=== PATIENT | male | born 1970 | race Caucasian/White ===

== ENCOUNTER 2023-12-11 06:33 | Day surgery (SDC) | payer BC ==
[2023-12-11] MEDS: Lactated Ringers 1,000 ML IV SCH (06:41)
[2023-12-11 06:53] VITALS: RESP 16
[2023-12-11] MEDS ORDERED: Versed 2 MG/2 ML Injection ONE (08:01)
[2023-12-11] MEDS ORDERED: DIPRIVAN 200 MG/20 ML IV ONE ×2 (08:01→08:18)
[2023-12-11] MEDS ORDERED: Xylocaine-Mpf 2% 5 Ml Vial ONE (08:01)
[2023-12-11 08:48] VITALS: O2SAT 100
--- NOTE | 2023-12-11 09:00 | OP ---
SURGERY DATE/TIME: 12/11/2023 0759 PREOPERATIVE DIAGNOSIS: Screening exam. POSTOPERATIVE DIAGNOSIS: Normal colon. PROCEDURE: Colonoscopy. SURGEON: Dr. Saul. ANESTHESIA: Medications given by anesthesia department. HISTORY: The patient is a 53-year-old white male presenting now for first screening colonoscopy. The patient was appraised of the risks of the procedure including the risk of perforation, phlebitis, untoward reaction to medication, bleeding and missed lesions. The patient verbalized his understanding and desired to have the procedure performed. DESCRIPTION OF PROCEDURE: The patient was given the medications by the anesthesia department. He had continuous pulse oximetry, ECG monitoring and intermittent blood pressure monitoring during the examination. He was placed in the left lateral decubitus position. A digital rectal examination was performed and revealed normal anal sphincter tone, no masses and a normal prostate. The flexible Olympus pediatric colonoscope was used to intubate the rectum. A view of the colon was developed sequentially to the cecum. Upon insertion and withdrawal, including a retroflex view in the rectum, no mucosal lesions were encountered. The scope was removed from the patient who tolerated the procedure well and was sent back to OP recovery in good condition. The prep was noted to be fair.
[2023-12-11 09:02] VITALS: BP 132/90; PULSE 94
[2023-12-11 09:14] VITALS: TEMP 97.6
== END 2023-12-11 09:13 | disposition home or self-care (01) ==
LOC: SDC 06:33
PROVIDERS: ATTEND Family Medicine
DX: Z12.11 Encounter for screening for malignant neoplasm of colon (principal); E11.9 Type 2 diabetes mellitus without complications
CPT/HCPCS: 82947; J2250; J2704

== ENCOUNTER 2024-10-05 13:47 | Observation (INO) | payer BC, MEDICAID ==
--- NOTE | 2024-10-05 14:53 | ERPHSYRPT ---
- History of Present Illness Source: patient Exam Limitations: no limitations Patient Subjective Stated Complaint: pt here for not feeling well and states hes BS was about 600 today, he was able to drink several bottles of water and took 6 u of humalog and 26 u of tresiba of hes moms today. he has not checked hes BS agian . Triage Nursing Assessment: pt alert, waked in, resp easy, skin w/d/p no edema noted, moves all ext well. Physician History: Patient has some generalized malaise. He does not have any fever or chills. He is diabetic and his sugar is in the 600s now. He has not checked it for 3 months. Exertion makes his symptoms of fatigue worse. He has no respiratory issues no abdominal issues other than some nausea. He does not have any other complaints. He says has been drinking plenty of fluids. Timing/Duration: week(s) Severity: mild, moderate Associated Symptoms: nausea, loss of appetite, malaise Allergies/Adverse Reactions: No Known Drug Allergies Allergy (Verified 12/11/23 06:40) Home Medications: Empagliflozin [Jardiance] 25 mg PO DAILY 11/29/23 [History] Glimepiride 2 mg [Amaryl 2 MG] 2 mg PO DAILY 11/29/23 [History] Semaglutide [Ozempic] 1 mg SQ WEEKLY 11/29/23 [History] Hx Influenza Vaccination/Date Given: No Hx Pneumococcal Vaccination/Date Given: No Immunizations Up to Date: Yes Travel Risk - International Travel Have you traveled outside of the country in past 3 weeks: No - Emerging Infectious Disease Are you exhibiting symptoms associated with any current EIDs: No - Review of Systems Constitutional: No Symptoms Eyes: No Symptoms Ears, Nose, & Throat: No Symptoms Respiratory: No Symptoms Cardiac: No Symptoms Abdominal/Gastrointestinal: No Symptoms Genitourinary Symptoms: No Symptoms Musculoskeletal: No Symptoms Skin: No Symptoms Neurological: No Symptoms All Other Systems: Reviewed and Negative - Past Medical History Pertinent Past Medical History: Yes Neurological History: No Pertinent History ENT History: No Pertinent History Cardiac History: No Pertinent History Respiratory History: No Pertinent History Endocrine Medical History: Diabetes Type II Musculoskeletal History: No Pertinent History GI Medical History: No Pertinent History History: No Pertinent History Psycho-Social History: No Pertinent History Male Reproductive Disorders: No Pertinent History - Past Surgical History Past Surgical History: No Neuro Surgical History: No Pertinent History Cardiac: No Pertinent History Respiratory: No Pertinent History Gastrointestinal: No Pertinent History Genitourinary: No Pertinent History Musculoskeletal: No Pertinent History Male Surgical History: Testicular Surgery - Social History Smoking Status: Current every day smoker How long have you smoked: 38 years Exposure to second hand smoke: Yes Drug Use: none - Social Determinants of Health Will the patient participate in the screening: Declined to provide - Nursing Vital Signs Nursing Vital Signs: Initial Vital Signs Respiratory Rate 18 10/05/24 14:08 O2 Sat by Pulse Oximetry 99 10/05/24 14:08 Pain Scale Pain Intensity 1 - Physical Exam General Appearance: no apparent distress Eye Exam: PERRL/EOMI Ears, Nose, Throat Exam: dry mucous membranes Neck Exam: normal inspection Respiratory Exam: normal breath sounds, lungs clear, No chest tenderness Cardiovascular Exam: regular rate/rhythm, normal heart sounds Gastrointestinal/Abdomen Exam: soft, normal bowel sounds, No tenderness, No distention, No mass Back Exam: normal inspection, normal range of motion, CVA tenderness Extremity Exam: normal inspection Neurologic Exam: alert, oriented x 3 Skin Exam: normal color SpO2: 99 - Course Nursing assessment & vital signs reviewed: Yes Ordered Tests: Active Orders 24 hr Category Date Time Status BMP Stat Lab 10/05/24 18:06 Ordered CBC W DIFF Stat Lab 10/05/24 14:50 Completed CMP Stat Lab 10/05/24 14:50 Completed POCT GLUCOSE Stat Lab 10/05/24 14:23 Received POCT GLUCOSE Stat Lab 10/05/24 16:20 Received POCT GLUCOSE Stat Lab 10/05/24 17:45 Completed UA W/RFX UR CULTURE Stat Lab 10/05/24 15:11 Completed Medication Summary Discontinued Medications Generic Name Dose Route Start Last Admin Trade Name Freq PRN Reason Stop Dose Admin Sodium Chloride 1,000 mls @ 999 mls/hr 10/05/24 14:48 10/05/24 16:05 Sodium Chloride 0.9% 1000 Ml IV 10/05/24 15:48 Infused .Q1H1M STA Infusion Sodium Chloride Confirm 10/05/24 15:00 Sodium Chloride 0.9% 1000 Ml Administered 10/05/24 15:01 Dose 1,000 mls @ ud .ROUTE .STK-MED ONE Sodium Chloride 1,000 mls @ 999 mls/hr 10/05/24 15:37 10/05/24 17:26 Sodium Chloride 0.9% 1000 Ml IV 10/05/24 16:37 Infused .Q1H1M STA Infusion Sodium Chloride Confirm 10/05/24 16:06 Sodium Chloride 0.9% 1000 Ml Administered 10/05/24 16:07 Dose 1,000 mls @ ud .ROUTE .STK-MED ONE Insulin Human Regular 20 unit 10/05/24 14:49 10/05/24 15:02 Insulin Regular, Human 1 Unit IV 10/05/24 14:50 Not Given STAT ONE Insulin Human Regular Confirm 10/05/24 15:00 Insulin Regular, Human 1 Unit Administered 10/05/24 15:01 Dose 10 unit .ROUTE .STK-MED ONE Insulin Human Regular 10 unit 10/05/24 15:02 10/05/24 15:04 Insulin Regular, Human 1 Unit IV 10/05/24 15:03 10 unit STAT ONE Administration Insulin Human Regular 10 unit 10/05/24 15:28 10/05/24 15:35 Insulin Regular, Human 1 Unit IV 10/05/24 15:29 10 unit STAT ONE Administration Insulin Human Regular Confirm 10/05/24 15:34 Insulin Regular, Human 1 Unit Administered 10/05/24 15:35 Dose 10 unit .ROUTE .STK-MED ONE Insulin Human Regular 10 unit 10/05/24 16:39 10/05/24 16:41 Insulin Regular, Human 1 Unit IV 10/05/24 16:40 10 unit STAT ONE Administration Insulin Human Regular Confirm 10/05/24 16:39 Insulin Regular, Human 1 Unit Administered 10/05/24 16:40 Dose 10 unit .ROUTE .STK-MED ONE Lab/Rad Data: Laboratory Result Diagrams 10/05/24 14:50 10/05/24 14:50 Laboratory Results 10/05/24 10/05/24 10/05/24 Range/Units 17:45 15:11 14:50 WBC (4.23-9.07) x10^3/uL RBC (4.63-6.08) x10^6/uL Hgb (13.7-17.5) g/dL Hct (40.1-51.0) % MCV (79.0-92.2) fL MCH (25.7-32.2) pg MCHC (32.3-36.5) g/dL RDW (11.6-14.4) % Plt Count (163-337) x10^3/uL MPV (9.4-12.4) fL Gran % (34.0-67.9) % Immature Gran % (Auto) (0.001-0.429) % Nucleat RBC Rel Count (0.00-0.2) % Eos # (Auto) (0.04-0.54) x10^3/uL Immature Gran # (Auto) (0.001-0.031) x10^3u/L Absolute Lymphs (auto) (1.32-3.57) x10^3/uL Absolute Monos (auto) (0.30-0.82) x10^3/uL Absolute Nucleated RBC (0.00-0.012) x10^3u/L Lymphocytes % (21.8-53.1) % Monocytes % (5.3-12.2) % Eosinophils % (0.8-7.0) % Basophils % (0.2-1.2) % Absolute Granulocytes (1.78-5.38) x10^3/uL Basophils # (0.01-0.08) x10^3/uL Sodium 124 L (135-145) mmol/L Potassium 5.5 H (3.5-5.1) mmol/L Chloride 87 L (98-107) mmol/L Carbon Dioxide 23 (22-30) mmol/L Anion Gap 19.7 H (5-15) MEQ/L BUN 33 H (9-20) mg/dL Creatinine 0.78 (0.66-1.25) mg/dL Estimated GFR 104.7 ML/MIN Glucose 938 H* (74-106) mg/dL POC Glucometer 552 H* (50 to 500) mg/dL Calcium 9.1 (8.4-10.2) mg/dL Total Bilirubin 0.40 (0.2-1.3) mg/dL AST 61 H (17-59) U/L ALT 103 H (0-50) U/L Alkaline Phosphatase 344 H (38-126) U/L Serum Total Protein 5.7 L (6.3-8.2) g/dL Albumin 3.4 L (3.5-5.0) g/dL Urine Color Yellow (Yellow) Urine Appearance Clear (Clear) Urine pH 5.0 (4.6-8.0) Ur Specific Mckinney >=1.030 A (1.005-1.030) Urine Protein Negative (Negative) Urine Glucose (UA) >=1000 A (Negative) mg/dL Urine Ketones Trace A (Negative) Urine Blood Negative (Negative) Urine Nitrite Negative (Negative) Urine Bilirubin Negative (Negative) Urine Urobilinogen 0.2 (0.2) mg/dL Ur Leukocyte Esterase Negative (Negative) U Hyaline Cast (Auto) NONE SEEN (0-2) /LPF Urine Microscopic RBC 0-2 (0-5) /HPF Urine Microscopic WBC 0-2 (0-5) /HPF Ur Epithelial Cells None Seen (None Seen) /HPF Urine Bacteria None Seen (None Seen) /HPF Urine Culture Reflexed NO (NO) Slides for Path Review 10/05/24 Range/Units 14:50 WBC 23.4 H (4.23-9.07) x10^3/uL RBC 4.93 (4.63-6.08) x10^6/uL Hgb 14.8 (13.7-17.5) g/dL Hct 45.1 (40.1-51.0) % MCV 91.5 (79.0-92.2) fL MCH 30.0 (25.7-32.2) pg MCHC 32.8 (32.3-36.5) g/dL RDW 13.0 (11.6-14.4) % Plt Count 249 (163-337) x10^3/uL MPV 11.9 (9.4-12.4) fL Gran % 88.1 H (34.0-67.9) % Immature Gran % (Auto) 1.6 H (0.001-0.429) % Nucleat RBC Rel Count 0.0 (0.00-0.2) % Eos # (Auto) 0 L (0.04-0.54) x10^3/uL Immature Gran # (Auto) 0.37 H (0.001-0.031) x10^3u/L Absolute Lymphs (auto) 0.97 L (1.32-3.57) x10^3/uL Absolute Monos (auto) 1.37 H (0.30-0.82) x10^3/uL Absolute Nucleated RBC 0.00 (0.00-0.012) x10^3u/L Lymphocytes % 4.2 L (21.8-53.1) % Monocytes % 5.9 (5.3-12.2) % Eosinophils % 0.0 L (0.8-7.0) % Basophils % 0.2 (0.2-1.2) % Absolute Granulocytes 20.61 H (1.78-5.38) x10^3/uL Basophils # 0.04 (0.01-0.08) x10^3/uL Sodium (135-145) mmol/L Potassium (3.5-5.1) mmol/L Chloride (98-107) mmol/L Carbon Dioxide (22-30) mmol/L Anion Gap (5-15) MEQ/L BUN (9-20) mg/dL Creatinine (0.66-1.25) mg/dL Estimated GFR ML/MIN Glucose (74-106) mg/dL POC Glucometer (50 to 500) mg/dL Calcium (8.4-10.2) mg/dL Total Bilirubin (0.2-1.3) mg/dL AST (17-59) U/L ALT (0-50) U/L Alkaline Phosphatase (38-126) U/L Serum Total Protein (6.3-8.2) g/dL Albumin (3.5-5.0) g/dL Urine Color (Yellow) Urine Appearance (Clear) Urine pH (4.6-8.0) Ur Specific Mckinney (1.005-1.030) Urine Protein (Negative) Urine Glucose (UA) (Negative) mg/dL Urine Ketones (Negative) Urine Blood (Negative) Urine Nitrite (Negative) Urine Bilirubin (Negative) Urine Urobilinogen (0.2) mg/dL Ur Leukocyte Esterase (Negative) U Hyaline Cast (Auto) (0-2) /LPF Urine Microscopic RBC (0-5) /HPF Urine Microscopic WBC (0-5) /HPF Ur Epithelial Cells (None Seen) /HPF Urine Bacteria (None Seen) /HPF Urine Culture Reflexed (NO) Slides for Path Review YES - Progress Progress: improved Progress Note: The patient's sugar was almost the thousand. He has not checked in 3 months so he does not know how long it has been high. He said generally nothing is changed in his treatment. He is taking the same medicines and using the same diet. He just does not check his blood sugars. He does not have any obvious infectious causes that would be causing the sugars to be elevated. I gave the patient 2 L of fluid and 30 units of regular insulin. His sugar went down to around 450. I am pleased with that reduction however I think that the patient should probably be admitted and figure out why sugar is so high and also get a new treatment plan if needed.I spoke with the hospitalist and they agreed to admit the patient. I ordered a venous blood gas on the patient. Critical care time was about 20 minutes at the bedside 10 minutes decision making in 10 minutes on the phone consultations 10/05/24 18:04 10/05/24 18:26 10/05/24 18:27 - Departure Departure Disposition: Observation Clinical Impression: Hyperglycemia Condition: Good Critical Care Time: Yes Critical Care Time(excluding separately billable procedures): Critical 30-74 mins Referrals: DOCTOR,NO FAMILY [NON-STAFF PHY W/O PRIVILEGES] - Follow up/PCP as directed
[2024-10-05 15:00] LABS: Absolute Neutrophil Ct (ANC) 20.61 x10^3/uL (1.78-5.38); BASOPHIL % 0.2 % (0.2-1.2); Basophil (Absolute #) 0.04 x10^3/uL (0.01-0.08); Eosinophil (Absolute #) 0 x10^3/uL (0.04-0.54); Hematocrit 45.1 % (40.1-51.0); Hemoglobin 14.8 g/dL (13.7-17.5); IMMATURE GRAN # 0.37 x10^3u/L (0.001-0.031); IMMATURE GRAN % 1.6 % (0.001-0.429); Lymphocyte (Absolute #) 0.97 x10^3/uL (1.32-3.57); Lymphocytes % 4.2 % (21.8-53.1); Mean Cell Volume 91.5 fL (79.0-92.2); Mean Corpuscular Hgb Concent. 32.8 g/dL (32.3-36.5); Mean Platelet Volume 11.9 fL (9.4-12.4); Monocyte (Absolute #) 1.37 x10^3/uL (0.30-0.82); Monocytes % 5.9 % (5.3-12.2); Neutrophil % 88.1 % (34.0-67.9); Platelet Count 249 x10^3/uL (163-337); Red Blood Count 4.93 x10^6/uL (4.63-6.08); White Blood Count 23.4 x10^3/uL (4.23-9.07)
[2024-10-05] MEDS ORDERED: HUMULIN R ONE ×3 (15:00→16:39)
[2024-10-05] MEDS ORDERED: Sodium Chloride 0.9% 1000 ML 1,000 ML ONE ×2 (15:00→16:06)
[2024-10-05] MEDS: Sodium Chloride 0.9% 1000 ML 1,000 ML IV STA ×2 (15:01→16:20)
[2024-10-05] MEDS: HUMULIN R IV ONE ×4 (15:02→16:41)
[2024-10-05 15:12] LABS: ALBUMIN 3.4 g/dL (3.5-5.0); ANION GAP 19.7 MEQ/L (5-15); BILIRUBIN,TOTAL 0.4 mg/dL (0.2-1.3); Calcium 9.1 mg/dL (8.4-10.2); Creatinine 1 0.78 mg/dL (0.66-1.25); EST GLOMERULAR FILTRATION RATE 104.7 ML/MIN; Potassium 5.5 mmol/L (3.5-5.1); Total Protein 5.7 g/dL (6.3-8.2)
[2024-10-05 15:48] LABS: Appearance Clear (Clear); Bacteria None Seen /HPF (None Seen); Bilirubin Negative (Negative); Blood Negative (Negative); Epithelial Cells None Seen /HPF (None Seen); Glucose, Urine >=1000 mg/dL (Negative); Hyaline Casts NONE SEEN /LPF (0-2); Ketones Trace (Negative); Leukocyte Esterase Negative (Negative); Nitrite Negative (Negative); Protein,Urine Dip Negative (Negative); RBC 0-2 /HPF (0-5); Specific Gravity >=1.030 (1.005-1.030); Urobilinogen 0.2 mg/dL (0.2); WBC 0-2 /HPF (0-5)
[2024-10-05 16:47] LABS: Slide Review 1 YES
[2024-10-05 18:41] LABS: VBG BASE EXCESS 2.4 (-2.0-2.0); VBG CARBOXYHEMOGLOBIN 4.7 % T HGB (0.0-6.9); VBG HCO3- 28.4 meq/L (22-28); VBG HEMOGLOBIN 15.1; VBG O2 SATURATION 46.3 (95-100); VBG POTASSIUM 4.2 (3.5-5.1); VBG pH 7.38 (7.32-7.42)
[2024-10-05 18:53] LABS: ANION GAP 13.2 MEQ/L (5-15); Calcium 8.7 mg/dL (8.4-10.2); Creatinine 1 0.71 mg/dL (0.66-1.25); EST GLOMERULAR FILTRATION RATE 107.7 ML/MIN; Potassium 4.2 mmol/L (3.5-5.1)
[2024-10-05 19:38] LABS: INFLUENZA A NEGATIVE (NEGATIVE); INFLUENZA B NEGATIVE (NEGATIVE); RESPIRATORY SYNCTIAL VIRUS NEGATIVE (NEGATIVE); SARS-CoV-2 Xpert Express NEGATIVE (NEGATIVE)
--- NOTE | 2024-10-05 21:54 | PCM.HP ---
History of Present Illness - Chief Complaint Chief Complaint: hyperglycemia Date: 10/05/24 History of Present Illness: Mr. GODWIN is a 54 year old male with a past medical history significant for hypertension, diabetes, and hyperlipidemia who presents to the hospital with complaints of weakness and elevated blood sugars. Blood sugar upon arrival was almost 1000. No recent changes in his diet. No fever/chills. No chest pain or shortness of breath. No nausea, vomiting or diarrhea. No dysuria, hematuria or foamy urine. Initial labs were notable for a sodium of 128. - Review of Systems Constitutional: No Fever, No Chills Eyes: No Vision Changes Ears, Nose, & Throat: No Snoring Respiratory: No Cough, No Orthopnea, No Short Of Breath Cardiac: No Chest Pain, No Edema, No Palpitations Abdominal/Gastrointestinal: No Abdominal Pain, No Nausea, No Vomiting, No Diarrhea Genitourinary Symptoms: No Dysuria, No Frequency, No Hematuria Musculoskeletal: No Arthralgias Skin: No Cellulitis Neurological: No Dizziness Medications & Allergies Home Medications: Home Medication List Semaglutide [Ozempic] 1.5 mg SQ WEEKLY 11/29/23 [History Confirmed 10/05/24] Carvedilol 3.125 mg [Coreg 3.125 MG] 3.125 mg PO BID 10/05/24 [History Confirmed 10/05/24] Glimepiride 4 mg [Amaryl 4 mg] 4 mg PO DAILY 10/05/24 [History Confirmed 10/05/24] Glipizide 10 mg [Glucotrol 10 MG] 10 mg PO BID 10/05/24 [History Confirmed 10/05/24] Allergies/Adverse Reactions: Allergies Allergy/AdvReac Type Severity Reaction Status Date / Time No Known Drug Allergies Allergy Verified 12/11/23 06:40 - Past Medical History Past Medical History: Yes Neurological History: No Pertinent History ENT History: Cataracts Cardiac History: No Pertinent History, Coronary Artery Disease, Hypertension Respiratory History: No Pertinent History Endocrine Medical History: Diabetes Type II Musculoskelatal History: No Pertinent History GI Medical History: No Pertinent History History: No Pertinent History Pyscho-Social History: No Pertinent History Male Reproductive Disorders: No Pertinent History - Past Surgical History Past Surgical History: Yes Neuro Surgical History: No Pertinent History Cardiac History: No Pertinent History Respiratory Surgery: No Pertinent History GI Surgical History: No Pertinent History Genitourinary Surgical Hx: No Pertinent History Musculskeletal Surgical Hx: No Pertinent History Male Surgical History: Testicular Surgery - Social History Smoking Status: Current every day smoker How long have you smoked: 38 years Exposure to second hand smoke: No Alcohol: None Drug Use: none - Social Determinants of Health Will the patient participate in the screening: Declined to provide - Physical Exam Vital Signs: Vital Signs - 24 hr Temp Pulse Resp BP BP Pulse Ox 10/05/24 20:35 97.7 F 91 H 17 124/75 98 10/05/24 19:00 90 18 115/73 98 10/05/24 18:30 91 H 18 112/68 97 10/05/24 18:28 99 10/05/24 18:00 86 18 118/79 97 10/05/24 17:30 86 18 112/80 97 10/05/24 17:00 91 H 18 114/81 98 10/05/24 16:30 91 H 18 117/79 98 10/05/24 16:00 127/88 98 10/05/24 15:30 128/95 98 10/05/24 15:00 90 16 135/93 98 10/05/24 14:30 90 16 135/91 98 10/05/24 14:09 97 F 94 H 18 143/100 99 10/05/24 14:08 18 99 General Appearance: no apparent distress Neurologic Exam: alert, oriented x 3 Ears, Nose, Throat Exam: moist mucous membranes Neck Exam: supple Respiratory Exam: No respiratory distress Cardiovascular Exam: regular rate/rhythm Gastrointestinal/Abdomen Exam: soft Skin Exam: normal color, No rash Results - Labs Lab/Micro Results: Lab Results-Last 24 Hours 10/05/24 10/05/24 10/05/24 Range/Units 14:50 14:50 15:11 WBC 23.4 H (4.23-9.07) x10^3/uL RBC 4.93 (4.63-6.08) x10^6/uL Hgb 14.8 (13.7-17.5) g/dL Hct 45.1 (40.1-51.0) % MCV 91.5 (79.0-92.2) fL MCH 30.0 (25.7-32.2) pg MCHC 32.8 (32.3-36.5) g/dL RDW 13.0 (11.6-14.4) % Plt Count 249 (163-337) x10^3/uL MPV 11.9 (9.4-12.4) fL Gran % 88.1 H (34.0-67.9) % Immature Gran % (Auto) 1.6 H (0.001-0.429) % Nucleat RBC Rel Count 0.0 (0.00-0.2) % Eos # (Auto) 0 L (0.04-0.54) x10^3/uL Immature Gran # (Auto) 0.37 H (0.001-0.031) x10^3u/L Absolute Lymphs (auto) 0.97 L (1.32-3.57) x10^3/uL Absolute Monos (auto) 1.37 H (0.30-0.82) x10^3/uL Absolute Nucleated RBC 0.00 (0.00-0.012) x10^3u/L Lymphocytes % 4.2 L (21.8-53.1) % Monocytes % 5.9 (5.3-12.2) % Eosinophils % 0.0 L (0.8-7.0) % Basophils % 0.2 (0.2-1.2) % Absolute Granulocytes 20.61 H (1.78-5.38) x10^3/uL Basophils # 0.04 (0.01-0.08) x10^3/uL pO2/FiO2 Ratio % VBG pH (7.32-7.42) VBG pCO2 at Pat Temp (42-55) mm/Hg VBG pO2 at Pat Temp (25-40) mm/Hg VBG HCO3 (22-28) meq/L VBG O2 Sat (Natalie) (95-100) VBG Base Excess (-2.0-2.0) VBG Hemoglobin VBG Carboxyhemoglobin (0.0-6.9) % T HGB POC Potassium (3.5-5.1) Sodium 124 L (135-145) mmol/L Potassium 5.5 H (3.5-5.1) mmol/L Chloride 87 L (98-107) mmol/L Carbon Dioxide 23 (22-30) mmol/L Anion Gap 19.7 H (5-15) MEQ/L BUN 33 H (9-20) mg/dL Creatinine 0.78 (0.66-1.25) mg/dL Estimated GFR 104.7 ML/MIN Glucose 938 H* (74-106) mg/dL POC Glucometer (50 to 500) mg/dL Calcium 9.1 (8.4-10.2) mg/dL Total Bilirubin 0.40 (0.2-1.3) mg/dL AST 61 H (17-59) U/L ALT 103 H (0-50) U/L Alkaline Phosphatase 344 H (38-126) U/L Serum Total Protein 5.7 L (6.3-8.2) g/dL Albumin 3.4 L (3.5-5.0) g/dL Urine Color Yellow (Yellow) Urine Appearance Clear (Clear) Urine pH 5.0 (4.6-8.0) Ur Specific [place] >=1.030 A (1.005-1.030) Urine Protein Negative (Negative) Urine Glucose (UA) >=1000 A (Negative) mg/dL Urine Ketones Trace A (Negative) Urine Blood Negative (Negative) Urine Nitrite Negative (Negative) Urine Bilirubin Negative (Negative) Urine Urobilinogen 0.2 (0.2) mg/dL Ur Leukocyte Esterase Negative (Negative) U Hyaline Cast (Auto) NONE SEEN (0-2) /LPF Urine Microscopic RBC 0-2 (0-5) /HPF Urine Microscopic WBC 0-2 (0-5) /HPF Ur Epithelial Cells None Seen (None Seen) /HPF Urine Bacteria None Seen (None Seen) /HPF Urine Culture Reflexed NO (NO) Influenza Type A Ag (NEGATIVE) Influenza Type B Ag (NEGATIVE) RSV (PCR) (NEGATIVE) SARS-CoV-2 (PCR) (NEGATIVE) Slides for Path Review YES 10/05/24 10/05/24 10/05/24 Range/Units 17:45 18:30 18:30 WBC (4.23-9.07) x10^3/uL RBC (4.63-6.08) x10^6/uL Hgb (13.7-17.5) g/dL Hct (40.1-51.0) % MCV (79.0-92.2) fL MCH (25.7-32.2) pg MCHC (32.3-36.5) g/dL RDW (11.6-14.4) % Plt Count (163-337) x10^3/uL MPV (9.4-12.4) fL Gran % (34.0-67.9) % Immature Gran % (Auto) (0.001-0.429) % Nucleat RBC Rel Count (0.00-0.2) % Eos # (Auto) (0.04-0.54) x10^3/uL Immature Gran # (Auto) (0.001-0.031) x10^3u/L Absolute Lymphs (auto) (1.32-3.57) x10^3/uL Absolute Monos (auto) (0.30-0.82) x10^3/uL Absolute Nucleated RBC (0.00-0.012) x10^3u/L Lymphocytes % (21.8-53.1) % Monocytes % (5.3-12.2) % Eosinophils % (0.8-7.0) % Basophils % (0.2-1.2) % Absolute Granulocytes (1.78-5.38) x10^3/uL Basophils # (0.01-0.08) x10^3/uL pO2/FiO2 Ratio 21.0 % VBG pH 7.38 (7.32-7.42) VBG pCO2 at Pat Temp 48 (42-55) mm/Hg VBG pO2 at Pat Temp 30 (25-40) mm/Hg VBG HCO3 28.4 H (22-28) meq/L VBG O2 Sat (Natalie) 46.3 L (95-100) VBG Base Excess 2.4 H (-2.0-2.0) VBG Hemoglobin 15.1 VBG Carboxyhemoglobin 4.7 (0.0-6.9) % T HGB POC Potassium 4.2 (3.5-5.1) Sodium 128 L (135-145) mmol/L Potassium 4.2 D (3.5-5.1) mmol/L Chloride 94 L (98-107) mmol/L Carbon Dioxide 25 (22-30) mmol/L Anion Gap 13.2 (5-15) MEQ/L BUN 32 H (9-20) mg/dL Creatinine 0.71 (0.66-1.25) mg/dL Estimated GFR 107.7 ML/MIN Glucose 466 H (74-106) mg/dL POC Glucometer 552 H* (50 to 500) mg/dL Calcium 8.7 (8.4-10.2) mg/dL Total Bilirubin (0.2-1.3) mg/dL AST (17-59) U/L ALT (0-50) U/L Alkaline Phosphatase (38-126) U/L Serum Total Protein (6.3-8.2) g/dL Albumin (3.5-5.0) g/dL Urine Color (Yellow) Urine Appearance (Clear) Urine pH (4.6-8.0) Ur Specific [place] (1.005-1.030) Urine Protein (Negative) Urine Glucose (UA) (Negative) mg/dL Urine Ketones (Negative) Urine Blood (Negative) Urine Nitrite (Negative) Urine Bilirubin (Negative) Urine Urobilinogen (0.2) mg/dL Ur Leukocyte Esterase (Negative) U Hyaline Cast (Auto) (0-2) /LPF Urine Microscopic RBC (0-5) /HPF Urine Microscopic WBC (0-5) /HPF Ur Epithelial Cells (None Seen) /HPF Urine Bacteria (None Seen) /HPF Urine Culture Reflexed (NO) Influenza Type A Ag (NEGATIVE) Influenza Type B Ag (NEGATIVE) RSV (PCR) (NEGATIVE) SARS-CoV-2 (PCR) (NEGATIVE) Slides for Path Review 10/05/24 10/05/24 Range/Units 18:50 20:50 WBC (4.23-9.07) x10^3/uL RBC (4.63-6.08) x10^6/uL Hgb (13.7-17.5) g/dL Hct (40.1-51.0) % MCV (79.0-92.2) fL MCH (25.7-32.2) pg MCHC (32.3-36.5) g/dL RDW (11.6-14.4) % Plt Count (163-337) x10^3/uL MPV (9.4-12.4) fL Gran % (34.0-67.9) % Immature Gran % (Auto) (0.001-0.429) % Nucleat RBC Rel Count (0.00-0.2) % Eos # (Auto) (0.04-0.54) x10^3/uL Immature Gran # (Auto) (0.001-0.031) x10^3u/L Absolute Lymphs (auto) (1.32-3.57) x10^3/uL Absolute Monos (auto) (0.30-0.82) x10^3/uL Absolute Nucleated RBC (0.00-0.012) x10^3u/L Lymphocytes % (21.8-53.1) % Monocytes % (5.3-12.2) % Eosinophils % (0.8-7.0) % Basophils % (0.2-1.2) % Absolute Granulocytes (1.78-5.38) x10^3/uL Basophils # (0.01-0.08) x10^3/uL pO2/FiO2 Ratio % VBG pH (7.32-7.42) VBG pCO2 at Pat Temp (42-55) mm/Hg VBG pO2 at Pat Temp (25-40) mm/Hg VBG HCO3 (22-28) meq/L VBG O2 Sat (Natalie) (95-100) VBG Base Excess (-2.0-2.0) VBG Hemoglobin VBG Carboxyhemoglobin (0.0-6.9) % T HGB POC Potassium (3.5-5.1) Sodium (135-145) mmol/L Potassium (3.5-5.1) mmol/L Chloride (98-107) mmol/L Carbon Dioxide (22-30) mmol/L Anion Gap (5-15) MEQ/L BUN (9-20) mg/dL Creatinine (0.66-1.25) mg/dL Estimated GFR ML/MIN Glucose (74-106) mg/dL POC Glucometer 461 H (50 to 500) mg/dL Calcium (8.4-10.2) mg/dL Total Bilirubin (0.2-1.3) mg/dL AST (17-59) U/L ALT (0-50) U/L Alkaline Phosphatase (38-126) U/L Serum Total Protein (6.3-8.2) g/dL Albumin (3.5-5.0) g/dL Urine Color (Yellow) Urine Appearance (Clear) Urine pH (4.6-8.0) Ur Specific [place] (1.005-1.030) Urine Protein (Negative) Urine Glucose (UA) (Negative) mg/dL Urine Ketones (Negative) Urine Blood (Negative) Urine Nitrite (Negative) Urine Bilirubin (Negative) Urine Urobilinogen (0.2) mg/dL Ur Leukocyte Esterase (Negative) U Hyaline Cast (Auto) (0-2) /LPF Urine Microscopic RBC (0-5) /HPF Urine Microscopic WBC (0-5) /HPF Ur Epithelial Cells (None Seen) /HPF Urine Bacteria (None Seen) /HPF Urine Culture Reflexed (NO) Influenza Type A Ag NEGATIVE (NEGATIVE) Influenza Type B Ag NEGATIVE (NEGATIVE) RSV (PCR) NEGATIVE (NEGATIVE) SARS-CoV-2 (PCR) NEGATIVE (NEGATIVE) Slides for Path Review Accuchecks Date 10/05/24 Date 10/05/24 Time 21:00 Time 16:35 - Other Procedures and Tests Respiratory Therapy 10/05/24 21:15 Smoking Cessation Education ONCE Assessment/Plan (1) Hyperglycemia due to diabetes mellitus Current Visit: Yes Status: Acute Assessment & Plan: Markedly elevated blood sugars close to 1000, doesn't check sugars but last HbA1c 9.0 from 10.5 1. FSBS qAC/HS with SSI 2. ADA diet 3. Continue diabetic needs 4. Monitor blood sugars Code(s): E11.65 - TYPE 2 DIABETES MELLITUS WITH HYPERGLYCEMIA (2) Dehydration Current Visit: Yes Status: Acute Assessment & Plan: Likely from prerenal azotemia and hyperglycemia with elevated BUN:Cr ratio 1. Trial of IVFs 2. Hold diuretics, FINA, ARB, SGLT2 3. Follow I/Os 4. Watch electrolytes, creatinine closely Code(s): E86.0 - DEHYDRATION (3) Essential (primary) hypertension Current Visit: Yes Status: Acute Assessment & Plan: Blood pressure under reasonable control 1. Continue bp meds 2. Low Na diet 3. Monitor blood pressure readings Code(s): I10 - ESSENTIAL (PRIMARY) HYPERTENSION (4) Hyponatremia Current Visit: Yes Status: Acute Assessment & Plan: Secondary to hyperglycemia and some component of hypovolemia 1. NS IVFs 2. Check urine lytes, urine osmo 3. Limit free water 4. Watch electrolytes, creatinine closely Thanks! Code(s): E87.1 - HYPO-OSMOLALITY AND HYPONATREMIA Telemedicine Encounter - Telemedicine Encounter Telemedicine Encounter: "The entirety of this encounter was performed via Telemedicine" This visit was performed using real-time audio and video connection between my location and thepatients locationwith the assistance of a surrogateat the patients location. Written or verbal consent was obtained from the patient/guardian to perform this visit usingsynchronoustelemedicine technology. Any patient questions regarding the telemedicine interaction were answered.
[2024-10-05] MEDS ORDERED: Docusate Sodium 100 MG PO PRN (22:10)
[2024-10-05] MEDS ORDERED: TYLENOL 325 MG PO PRN (22:10)
[2024-10-05] MEDS: HUMULIN R SQ PRN (22:24)
[2024-10-05] MEDS: Sodium Chloride 0.9% 1000 ML 1,000 ML IV SCH (23:35)
[2024-10-06 04:50] LABS: Absolute Neutrophil Ct (ANC) 14.25 x10^3/uL (1.78-5.38); BASOPHIL % 0.2 % (0.2-1.2); Basophil (Absolute #) 0.03 x10^3/uL (0.01-0.08); Eosinophil % 0.2 % (0.8-7.0); Eosinophil (Absolute #) 0.03 x10^3/uL (0.04-0.54); Hemoglobin 13.9 g/dL (13.7-17.5); IMMATURE GRAN # 0.26 x10^3u/L (0.001-0.031); IMMATURE GRAN % 1.4 % (0.001-0.429); Mean Cell Volume 88.6 fL (79.0-92.2); Mean Corpuscular Hgb Concent. 33.9 g/dL (32.3-36.5); Monocyte (Absolute #) 1.21 x10^3/uL (0.30-0.82); Monocytes % 6.4 % (5.3-12.2); Neutrophil % 75.8 % (34.0-67.9); Platelet Count 249 x10^3/uL (163-337); Red Blood Count 4.63 x10^6/uL (4.63-6.08); Red Cell Distribution Width 12.9 % (11.6-14.4); White Blood Count 18.8 x10^3/uL (4.23-9.07)
[2024-10-06 05:20] LABS: ALBUMIN 3.3 g/dL (3.5-5.0); ANION GAP 9.9 MEQ/L (5-15); BILIRUBIN,TOTAL 0.6 mg/dL (0.2-1.3); Calcium 8.6 mg/dL (8.4-10.2); Creatinine 1 0.74 mg/dL (0.66-1.25); EST GLOMERULAR FILTRATION RATE 106.3 ML/MIN; Potassium 3.9 mmol/L (3.5-5.1); Total Protein 6.1 g/dL (6.3-8.2)
--- NOTE | 2024-10-06 05:46 | PCM.NOTE ---
Date and Time: 10/06/24 0541 Subjective Assessment: HPI: Mr. GODWIN is a 54 year old male with a past medical history significant for hypertension, diabetes, and hyperlipidemia who presents to the hospital with complaints of weakness and elevated blood sugars. Initial lab findings were remarkable for blood glucose level of 938, leukocytosis with WBC at 23.4, hyponatremia in the setting of hypoglycemia, elevated procal at 0.530, and transaminitis. Urinalysis with glycosuria. CXR showing new infilatrate in bilateral lungs. Patient states he is compliant with home diabetes medications but does not check his blood sugar. He states he needs a new machine and supplies. Last A1c in November 2023 was 11.10, today A1c is at 12.53. Discussed starting insulin and seeing an senior procurement specialist with patient today. He currently is Medicaid pending and will need help with medications and supplies- CM is working on this. Patient states he is feeling better today. Discussed CXR findings showing pneumonia. He reports feeling achy all over but denies cough or shortness of breath. He is a current everyday smoker -advised cessation. Denies fever,cough, sob, cp, abdominal pain, WOOTEN, dizziness, N/V/D. - Review of Systems Constitutional: Weakness Eyes: No Symptoms Ears, Nose, & Throat: No Symptoms Respiratory: No Symptoms Cardiac: No Symptoms Abdominal/Gastrointestinal: No Symptoms Genitourinary Symptoms: No Symptoms Musculoskeletal: No Symptoms Skin: No Symptoms Neurological: No Symptoms Psychological: No Symptoms Endocrine: No Symptoms Hematologic/Lymphatic: No Symptoms Immunological/Allergic: No Symptoms Objective Exam General Appearance: no apparent distress Neurologic Exam: alert, oriented x 3, cooperative Skin Exam: normal color Eye Exam: PERRL Ears, Nose, Throat Exam: normal ENT inspection Neck Exam: normal inspection Respiratory Exam: crackles/rales Cardiovascular Exam: regular rate/rhythm, normal heart sounds Gastrointestinal/Abdomen Exam: soft, normal bowel sounds Extremity Exam: normal inspection Back Exam: normal inspection Male Genitalia Exam: deferred Rectal Exam: deferred Objective Data Vital Signs: Vital Signs - 24 hr Temp Pulse Resp BP BP Pulse Ox 10/06/24 03:39 97.8 F 85 22 121/64 96 10/06/24 00:00 97.7 F 87 16 115/73 10/05/24 23:19 97.7 F 87 16 115/73 10/05/24 20:35 97.7 F 91 H 17 124/75 98 10/05/24 19:00 90 18 115/73 98 10/05/24 18:30 91 H 18 112/68 97 10/05/24 18:28 99 10/05/24 18:00 86 18 118/79 97 10/05/24 17:30 86 18 112/80 97 10/05/24 17:00 91 H 18 114/81 98 10/05/24 16:30 91 H 18 117/79 98 10/05/24 16:00 127/88 98 10/05/24 15:30 128/95 98 10/05/24 15:00 90 16 135/93 98 10/05/24 14:30 90 16 135/91 98 10/05/24 14:09 97 F 94 H 18 143/100 99 10/05/24 14:08 18 99 Pain Assessment - Last Documented Pain Intensity 0 Intake and Output: Intake & Output 10/03/24 10/04/24 10/05/24 10/06/24 11:59 11:59 11:59 11:59 Intake Total 1151 Output Total 600 Balance 551 Weight 77.3 kg Lab Results: Lab Results-Last 24 Hours 10/05/24 10/05/24 10/05/24 Range/Units 14:50 14:50 15:11 WBC 23.4 H (4.23-9.07) x10^3/uL RBC 4.93 (4.63-6.08) x10^6/uL Hgb 14.8 (13.7-17.5) g/dL Hct 45.1 (40.1-51.0) % MCV 91.5 (79.0-92.2) fL MCH 30.0 (25.7-32.2) pg MCHC 32.8 (32.3-36.5) g/dL RDW 13.0 (11.6-14.4) % Plt Count 249 (163-337) x10^3/uL MPV 11.9 (9.4-12.4) fL Gran % 88.1 H (34.0-67.9) % Immature Gran % (Auto) 1.6 H (0.001-0.429) % Nucleat RBC Rel Count 0.0 (0.00-0.2) % Eos # (Auto) 0 L (0.04-0.54) x10^3/uL Immature Gran # (Auto) 0.37 H (0.001-0.031) x10^3u/L Absolute Lymphs (auto) 0.97 L (1.32-3.57) x10^3/uL Absolute Monos (auto) 1.37 H (0.30-0.82) x10^3/uL Absolute Nucleated RBC 0.00 (0.00-0.012) x10^3u/L Lymphocytes % 4.2 L (21.8-53.1) % Monocytes % 5.9 (5.3-12.2) % Eosinophils % 0.0 L (0.8-7.0) % Basophils % 0.2 (0.2-1.2) % Absolute Granulocytes 20.61 H (1.78-5.38) x10^3/uL Basophils # 0.04 (0.01-0.08) x10^3/uL pO2/FiO2 Ratio % VBG pH (7.32-7.42) VBG pCO2 at Pat Temp (42-55) mm/Hg VBG pO2 at Pat Temp (25-40) mm/Hg VBG HCO3 (22-28) meq/L VBG O2 Sat (Natalie) (95-100) VBG Base Excess (-2.0-2.0) VBG Hemoglobin VBG Carboxyhemoglobin (0.0-6.9) % T HGB POC Potassium (3.5-5.1) Sodium 124 L (135-145) mmol/L Potassium 5.5 H (3.5-5.1) mmol/L Chloride 87 L (98-107) mmol/L Carbon Dioxide 23 (22-30) mmol/L Anion Gap 19.7 H (5-15) MEQ/L BUN 33 H (9-20) mg/dL Creatinine 0.78 (0.66-1.25) mg/dL Estimated GFR 104.7 ML/MIN Glucose 938 H* (74-106) mg/dL POC Glucometer (50 to 500) mg/dL Hemoglobin A1c (4.5-6.0) % Calcium 9.1 (8.4-10.2) mg/dL Total Bilirubin 0.40 (0.2-1.3) mg/dL AST 61 H (17-59) U/L ALT 103 H (0-50) U/L Alkaline Phosphatase 344 H (38-126) U/L Serum Total Protein 5.7 L (6.3-8.2) g/dL Albumin 3.4 L (3.5-5.0) g/dL Urine Color Yellow (Yellow) Urine Appearance Clear (Clear) Urine pH 5.0 (4.6-8.0) Ur Specific [place] >=1.030 A (1.005-1.030) Urine Protein Negative (Negative) Urine Glucose (UA) >=1000 A (Negative) mg/dL Urine Ketones Trace A (Negative) Urine Blood Negative (Negative) Urine Nitrite Negative (Negative) Urine Bilirubin Negative (Negative) Urine Urobilinogen 0.2 (0.2) mg/dL Ur Leukocyte Esterase Negative (Negative) U Hyaline Cast (Auto) NONE SEEN (0-2) /LPF Urine Microscopic RBC 0-2 (0-5) /HPF Urine Microscopic WBC 0-2 (0-5) /HPF Ur Epithelial Cells None Seen (None Seen) /HPF Urine Bacteria None Seen (None Seen) /HPF Urine Culture Reflexed NO (NO) Influenza Type A Ag (NEGATIVE) Influenza Type B Ag (NEGATIVE) RSV (PCR) (NEGATIVE) SARS-CoV-2 (PCR) (NEGATIVE) Slides for Path Review YES 10/05/24 10/05/24 10/05/24 Range/Units 17:45 18:30 18:30 WBC (4.23-9.07) x10^3/uL RBC (4.63-6.08) x10^6/uL Hgb (13.7-17.5) g/dL Hct (40.1-51.0) % MCV (79.0-92.2) fL MCH (25.7-32.2) pg MCHC (32.3-36.5) g/dL RDW (11.6-14.4) % Plt Count (163-337) x10^3/uL MPV (9.4-12.4) fL Gran % (34.0-67.9) % Immature Gran % (Auto) (0.001-0.429) % Nucleat RBC Rel Count (0.00-0.2) % Eos # (Auto) (0.04-0.54) x10^3/uL Immature Gran # (Auto) (0.001-0.031) x10^3u/L Absolute Lymphs (auto) (1.32-3.57) x10^3/uL Absolute Monos (auto) (0.30-0.82) x10^3/uL Absolute Nucleated RBC (0.00-0.012) x10^3u/L Lymphocytes % (21.8-53.1) % Monocytes % (5.3-12.2) % Eosinophils % (0.8-7.0) % Basophils % (0.2-1.2) % Absolute Granulocytes (1.78-5.38) x10^3/uL Basophils # (0.01-0.08) x10^3/uL pO2/FiO2 Ratio 21.0 % VBG pH 7.38 (7.32-7.42) VBG pCO2 at Pat Temp 48 (42-55) mm/Hg VBG pO2 at Pat Temp 30 (25-40) mm/Hg VBG HCO3 28.4 H (22-28) meq/L VBG O2 Sat (Natalie) 46.3 L (95-100) VBG Base Excess 2.4 H (-2.0-2.0) VBG Hemoglobin 15.1 VBG Carboxyhemoglobin 4.7 (0.0-6.9) % T HGB POC Potassium 4.2 (3.5-5.1) Sodium 128 L (135-145) mmol/L Potassium 4.2 D (3.5-5.1) mmol/L Chloride 94 L (98-107) mmol/L Carbon Dioxide 25 (22-30) mmol/L Anion Gap 13.2 (5-15) MEQ/L BUN 32 H (9-20) mg/dL Creatinine 0.71 (0.66-1.25) mg/dL Estimated GFR 107.7 ML/MIN Glucose 466 H (74-106) mg/dL POC Glucometer 552 H* (50 to 500) mg/dL Hemoglobin A1c (4.5-6.0) % Calcium 8.7 (8.4-10.2) mg/dL Total Bilirubin (0.2-1.3) mg/dL AST (17-59) U/L ALT (0-50) U/L Alkaline Phosphatase (38-126) U/L Serum Total Protein (6.3-8.2) g/dL Albumin (3.5-5.0) g/dL Urine Color (Yellow) Urine Appearance (Clear) Urine pH (4.6-8.0) Ur Specific [place] (1.005-1.030) Urine Protein (Negative) Urine Glucose (UA) (Negative) mg/dL Urine Ketones (Negative) Urine Blood (Negative) Urine Nitrite (Negative) Urine Bilirubin (Negative) Urine Urobilinogen (0.2) mg/dL Ur Leukocyte Esterase (Negative) U Hyaline Cast (Auto) (0-2) /LPF Urine Microscopic RBC (0-5) /HPF Urine Microscopic WBC (0-5) /HPF Ur Epithelial Cells (None Seen) /HPF Urine Bacteria (None Seen) /HPF Urine Culture Reflexed (NO) Influenza Type A Ag (NEGATIVE) Influenza Type B Ag (NEGATIVE) RSV (PCR) (NEGATIVE) SARS-CoV-2 (PCR) (NEGATIVE) Slides for Path Review 10/05/24 10/05/24 10/05/24 Range/Units 18:50 20:50 22:04 WBC (4.23-9.07) x10^3/uL RBC (4.63-6.08) x10^6/uL Hgb (13.7-17.5) g/dL Hct (40.1-51.0) % MCV (79.0-92.2) fL MCH (25.7-32.2) pg MCHC (32.3-36.5) g/dL RDW (11.6-14.4) % Plt Count (163-337) x10^3/uL MPV (9.4-12.4) fL Gran % (34.0-67.9) % Immature Gran % (Auto) (0.001-0.429) % Nucleat RBC Rel Count (0.00-0.2) % Eos # (Auto) (0.04-0.54) x10^3/uL Immature Gran # (Auto) (0.001-0.031) x10^3u/L Absolute Lymphs (auto) (1.32-3.57) x10^3/uL Absolute Monos (auto) (0.30-0.82) x10^3/uL Absolute Nucleated RBC (0.00-0.012) x10^3u/L Lymphocytes % (21.8-53.1) % Monocytes % (5.3-12.2) % Eosinophils % (0.8-7.0) % Basophils % (0.2-1.2) % Absolute Granulocytes (1.78-5.38) x10^3/uL Basophils # (0.01-0.08) x10^3/uL pO2/FiO2 Ratio % VBG pH (7.32-7.42) VBG pCO2 at Pat Temp (42-55) mm/Hg VBG pO2 at Pat Temp (25-40) mm/Hg VBG HCO3 (22-28) meq/L VBG O2 Sat (Natalie) (95-100) VBG Base Excess (-2.0-2.0) VBG Hemoglobin VBG Carboxyhemoglobin (0.0-6.9) % T HGB POC Potassium (3.5-5.1) Sodium (135-145) mmol/L Potassium (3.5-5.1) mmol/L Chloride (98-107) mmol/L Carbon Dioxide (22-30) mmol/L Anion Gap (5-15) MEQ/L BUN (9-20) mg/dL Creatinine (0.66-1.25) mg/dL Estimated GFR ML/MIN Glucose (74-106) mg/dL POC Glucometer 461 H 452 H (50 to 500) mg/dL Hemoglobin A1c (4.5-6.0) % Calcium (8.4-10.2) mg/dL Total Bilirubin (0.2-1.3) mg/dL AST (17-59) U/L ALT (0-50) U/L Alkaline Phosphatase (38-126) U/L Serum Total Protein (6.3-8.2) g/dL Albumin (3.5-5.0) g/dL Urine Color (Yellow) Urine Appearance (Clear) Urine pH (4.6-8.0) Ur Specific [place] (1.005-1.030) Urine Protein (Negative) Urine Glucose (UA) (Negative) mg/dL Urine Ketones (Negative) Urine Blood (Negative) Urine Nitrite (Negative) Urine Bilirubin (Negative) Urine Urobilinogen (0.2) mg/dL Ur Leukocyte Esterase (Negative) U Hyaline Cast (Auto) (0-2) /LPF Urine Microscopic RBC (0-5) /HPF Urine Microscopic WBC (0-5) /HPF Ur Epithelial Cells (None Seen) /HPF Urine Bacteria (None Seen) /HPF Urine Culture Reflexed (NO) Influenza Type A Ag NEGATIVE (NEGATIVE) Influenza Type B Ag NEGATIVE (NEGATIVE) RSV (PCR) NEGATIVE (NEGATIVE) SARS-CoV-2 (PCR) NEGATIVE (NEGATIVE) Slides for Path Review 10/05/24 10/06/24 10/06/24 Range/Units 23:03 00:56 03:16 WBC (4.23-9.07) x10^3/uL RBC (4.63-6.08) x10^6/uL Hgb (13.7-17.5) g/dL Hct (40.1-51.0) % MCV (79.0-92.2) fL MCH (25.7-32.2) pg MCHC (32.3-36.5) g/dL RDW (11.6-14.4) % Plt Count (163-337) x10^3/uL MPV (9.4-12.4) fL Gran % (34.0-67.9) % Immature Gran % (Auto) (0.001-0.429) % Nucleat RBC Rel Count (0.00-0.2) % Eos # (Auto) (0.04-0.54) x10^3/uL Immature Gran # (Auto) (0.001-0.031) x10^3u/L Absolute Lymphs (auto) (1.32-3.57) x10^3/uL Absolute Monos (auto) (0.30-0.82) x10^3/uL Absolute Nucleated RBC (0.00-0.012) x10^3u/L Lymphocytes % (21.8-53.1) % Monocytes % (5.3-12.2) % Eosinophils % (0.8-7.0) % Basophils % (0.2-1.2) % Absolute Granulocytes (1.78-5.38) x10^3/uL Basophils # (0.01-0.08) x10^3/uL pO2/FiO2 Ratio % VBG pH (7.32-7.42) VBG pCO2 at Pat Temp (42-55) mm/Hg VBG pO2 at Pat Temp (25-40) mm/Hg VBG HCO3 (22-28) meq/L VBG O2 Sat (Natalie) (95-100) VBG Base Excess (-2.0-2.0) VBG Hemoglobin VBG Carboxyhemoglobin (0.0-6.9) % T HGB POC Potassium (3.5-5.1) Sodium (135-145) mmol/L Potassium (3.5-5.1) mmol/L Chloride (98-107) mmol/L Carbon Dioxide (22-30) mmol/L Anion Gap (5-15) MEQ/L BUN (9-20) mg/dL Creatinine (0.66-1.25) mg/dL Estimated GFR ML/MIN Glucose (74-106) mg/dL POC Glucometer 398 H 331 H 288 H (50 to 500) mg/dL Hemoglobin A1c (4.5-6.0) % Calcium (8.4-10.2) mg/dL Total Bilirubin (0.2-1.3) mg/dL AST (17-59) U/L ALT (0-50) U/L Alkaline Phosphatase (38-126) U/L Serum Total Protein (6.3-8.2) g/dL Albumin (3.5-5.0) g/dL Urine Color (Yellow) Urine Appearance (Clear) Urine pH (4.6-8.0) Ur Specific [place] (1.005-1.030) Urine Protein (Negative) Urine Glucose (UA) (Negative) mg/dL Urine Ketones (Negative) Urine Blood (Negative) Urine Nitrite (Negative) Urine Bilirubin (Negative) Urine Urobilinogen (0.2) mg/dL Ur Leukocyte Esterase (Negative) U Hyaline Cast (Auto) (0-2) /LPF Urine Microscopic RBC (0-5) /HPF Urine Microscopic WBC (0-5) /HPF Ur Epithelial Cells (None Seen) /HPF Urine Bacteria (None Seen) /HPF Urine Culture Reflexed (NO) Influenza Type A Ag (NEGATIVE) Influenza Type B Ag (NEGATIVE) RSV (PCR) (NEGATIVE) SARS-CoV-2 (PCR) (NEGATIVE) Slides for Path Review 10/06/24 10/06/24 10/06/24 Range/Units 04:34 04:34 04:34 WBC 18.8 H (4.23-9.07) x10^3/uL RBC 4.63 (4.63-6.08) x10^6/uL Hgb 13.9 (13.7-17.5) g/dL Hct 41.0 (40.1-51.0) % MCV 88.6 (79.0-92.2) fL MCH 30.0 (25.7-32.2) pg MCHC 33.9 (32.3-36.5) g/dL RDW 12.9 (11.6-14.4) % Plt Count 249 (163-337) x10^3/uL MPV 11.0 (9.4-12.4) fL Gran % 75.8 H (34.0-67.9) % Immature Gran % (Auto) 1.4 H (0.001-0.429) % Nucleat RBC Rel Count 0.0 (0.00-0.2) % Eos # (Auto) 0.03 L (0.04-0.54) x10^3/uL Immature Gran # (Auto) 0.26 H (0.001-0.031) x10^3u/L Absolute Lymphs (auto) 3.00 (1.32-3.57) x10^3/uL Absolute Monos (auto) 1.21 H (0.30-0.82) x10^3/uL Absolute Nucleated RBC 0.00 (0.00-0.012) x10^3u/L Lymphocytes % 16.0 L (21.8-53.1) % Monocytes % 6.4 (5.3-12.2) % Eosinophils % 0.2 L (0.8-7.0) % Basophils % 0.2 (0.2-1.2) % Absolute Granulocytes 14.25 H (1.78-5.38) x10^3/uL Basophils # 0.03 (0.01-0.08) x10^3/uL pO2/FiO2 Ratio % VBG pH (7.32-7.42) VBG pCO2 at Pat Temp (42-55) mm/Hg VBG pO2 at Pat Temp (25-40) mm/Hg VBG HCO3 (22-28) meq/L VBG O2 Sat (Natalie) (95-100) VBG Base Excess (-2.0-2.0) VBG Hemoglobin VBG Carboxyhemoglobin (0.0-6.9) % T HGB POC Potassium (3.5-5.1) Sodium 131 L (135-145) mmol/L Potassium 3.9 (3.5-5.1) mmol/L Chloride 98 (98-107) mmol/L Carbon Dioxide 28 (22-30) mmol/L Anion Gap 9.9 (5-15) MEQ/L BUN 32 H (9-20) mg/dL Creatinine 0.74 (0.66-1.25) mg/dL Estimated GFR 106.3 ML/MIN Glucose 177 H (74-106) mg/dL POC Glucometer (50 to 500) mg/dL Hemoglobin A1c 12.53 H (4.5-6.0) % Calcium 8.6 (8.4-10.2) mg/dL Total Bilirubin 0.60 (0.2-1.3) mg/dL AST 43 (17-59) U/L ALT 78 H (0-50) U/L Alkaline Phosphatase 181 H (38-126) U/L Serum Total Protein 6.1 L (6.3-8.2) g/dL Albumin 3.3 L (3.5-5.0) g/dL Urine Color (Yellow) Urine Appearance (Clear) Urine pH (4.6-8.0) Ur Specific [place] (1.005-1.030) Urine Protein (Negative) Urine Glucose (UA) (Negative) mg/dL Urine Ketones (Negative) Urine Blood (Negative) Urine Nitrite (Negative) Urine Bilirubin (Negative) Urine Urobilinogen (0.2) mg/dL Ur Leukocyte Esterase (Negative) U Hyaline Cast (Auto) (0-2) /LPF Urine Microscopic RBC (0-5) /HPF Urine Microscopic WBC (0-5) /HPF Ur Epithelial Cells (None Seen) /HPF Urine Bacteria (None Seen) /HPF Urine Culture Reflexed (NO) Influenza Type A Ag (NEGATIVE) Influenza Type B Ag (NEGATIVE) RSV (PCR) (NEGATIVE) SARS-CoV-2 (PCR) (NEGATIVE) Slides for Path Review 10/06/24 Range/Units 05:17 WBC (4.23-9.07) x10^3/uL RBC (4.63-6.08) x10^6/uL Hgb (13.7-17.5) g/dL Hct (40.1-51.0) % MCV (79.0-92.2) fL MCH (25.7-32.2) pg MCHC (32.3-36.5) g/dL RDW (11.6-14.4) % Plt Count (163-337) x10^3/uL MPV (9.4-12.4) fL Gran % (34.0-67.9) % Immature Gran % (Auto) (0.001-0.429) % Nucleat RBC Rel Count (0.00-0.2) % Eos # (Auto) (0.04-0.54) x10^3/uL Immature Gran # (Auto) (0.001-0.031) x10^3u/L Absolute Lymphs (auto) (1.32-3.57) x10^3/uL Absolute Monos (auto) (0.30-0.82) x10^3/uL Absolute Nucleated RBC (0.00-0.012) x10^3u/L Lymphocytes % (21.8-53.1) % Monocytes % (5.3-12.2) % Eosinophils % (0.8-7.0) % Basophils % (0.2-1.2) % Absolute Granulocytes (1.78-5.38) x10^3/uL Basophils # (0.01-0.08) x10^3/uL pO2/FiO2 Ratio % VBG pH (7.32-7.42) VBG pCO2 at Pat Temp (42-55) mm/Hg VBG pO2 at Pat Temp (25-40) mm/Hg VBG HCO3 (22-28) meq/L VBG O2 Sat (Natalie) (95-100) VBG Base Excess (-2.0-2.0) VBG Hemoglobin VBG Carboxyhemoglobin (0.0-6.9) % T HGB POC Potassium (3.5-5.1) Sodium (135-145) mmol/L Potassium (3.5-5.1) mmol/L Chloride (98-107) mmol/L Carbon Dioxide (22-30) mmol/L Anion Gap (5-15) MEQ/L BUN (9-20) mg/dL Creatinine (0.66-1.25) mg/dL Estimated GFR ML/MIN Glucose (74-106) mg/dL POC Glucometer 172 H (50 to 500) mg/dL Hemoglobin A1c (4.5-6.0) % Calcium (8.4-10.2) mg/dL Total Bilirubin (0.2-1.3) mg/dL AST (17-59) U/L ALT (0-50) U/L Alkaline Phosphatase (38-126) U/L Serum Total Protein (6.3-8.2) g/dL Albumin (3.5-5.0) g/dL Urine Color (Yellow) Urine Appearance (Clear) Urine pH (4.6-8.0) Ur Specific [place] (1.005-1.030) Urine Protein (Negative) Urine Glucose (UA) (Negative) mg/dL Urine Ketones (Negative) Urine Blood (Negative) Urine Nitrite (Negative) Urine Bilirubin (Negative) Urine Urobilinogen (0.2) mg/dL Ur Leukocyte Esterase (Negative) U Hyaline Cast (Auto) (0-2) /LPF Urine Microscopic RBC (0-5) /HPF Urine Microscopic WBC (0-5) /HPF Ur Epithelial Cells (None Seen) /HPF Urine Bacteria (None Seen) /HPF Urine Culture Reflexed (NO) Influenza Type A Ag (NEGATIVE) Influenza Type B Ag (NEGATIVE) RSV (PCR) (NEGATIVE) SARS-CoV-2 (PCR) (NEGATIVE) Slides for Path Review Assessment/Plan (1) Hyperglycemia due to diabetes mellitus Current Visit: Yes Status: Acute Assessment & Plan: -accuchecks ACHS -ADA diet -A1c 12.53 - SSI/glargine glargine 20u QAM -Blood glucose levels reviewed and improving now at 177 this morning -Diabetic education -CM to work on supplies - glucometer, lancets, strips - patient may have to get [employer] until insurance kicks in- will check on affordability -Educated patient on the importance of good glycemic control and checking blood glucose levels -Will set up with Dr. Leung (endocrinology) on discharge Code(s): E11.65 - TYPE 2 DIABETES MELLITUS WITH HYPERGLYCEMIA (2) Pneumonia Current Visit: Yes Status: Acute Assessment & Plan: -CXR demonstrates new mild bibasilar infiltrates/atelectasis/effusions -WBC reviewed at 18.8<23.4 -trend -Supplemental oxygen for goal spo2 > 92% - baseline RA -Currently on RA -Nebs prn -Ceftriaxone/azithromycin Code(s): J18.9 - PNEUMONIA, UNSPECIFIED ORGANISM (3) Dehydration Current Visit: Yes Status: Acute Assessment & Plan: -Resolved Code(s): E86.0 - DEHYDRATION (4) Essential (primary) hypertension Current Visit: Yes Status: Acute Assessment & Plan: -stable continue home meds Code(s): I10 - ESSENTIAL (PRIMARY) HYPERTENSION (5) Hyponatremia Current Visit: Yes Status: Acute Assessment & Plan: -secondary to hyperglycemia -CMP reviewed, sodium now at 131 Code(s): E87.1 - HYPO-OSMOLALITY AND HYPONATREMIA
[2024-10-06] MEDS ORDERED: HUMALOG SQ SCH (08:00)
--- NOTE | 2024-10-06 08:52 | XRAY ---
Indication: Cough and short of breath. Comparison: April 11, 2023 Portable apical lordotic chest is now underinflated with new mild bibasilar infiltrates/atelectasis/effusions. Heart not enlarged. Bony thorax intact again with mild degenerative changes.
[2024-10-06] MEDS: ENOXAPARIN SODIUM SQ SCH (09:30)
[2024-10-06] MEDS: Coreg 3.125 MG PO SCH (09:30)
[2024-10-06] MEDS: Lantus Insulin SQ SCH (09:30)
[2024-10-06] MEDS: ROCEPHIN 1 GM / 100 ML NaCl 1 GM/100 ML IVPB IV SCH (10:56)
[2024-10-06] MEDS: Zithromax 500 MG/ 250 ML NaCl Premix 500 MG/250 ML IVPB IV SCH (11:34)
[2024-10-06] MEDS: HUMALOG SQ PRN (12:00)
[2024-10-07 05:30] LABS: Absolute Neutrophil Ct (ANC) 12.46 x10^3/uL (1.78-5.38); BASOPHIL % 0.4 % (0.2-1.2); Basophil (Absolute #) 0.06 x10^3/uL (0.01-0.08); Eosinophil % 0.4 % (0.8-7.0); Eosinophil (Absolute #) 0.07 x10^3/uL (0.04-0.54); Hematocrit 39.3 % (40.1-51.0); IMMATURE GRAN # 0.31 x10^3u/L (0.001-0.031); IMMATURE GRAN % 1.8 % (0.001-0.429); Lymphocyte (Absolute #) 3.22 x10^3/uL (1.32-3.57); Lymphocytes % 18.8 % (21.8-53.1); Mean Cell Volume 90.1 fL (79.0-92.2); Mean Corpuscular Hemoglobin 29.8 pg (25.7-32.2); Mean Corpuscular Hgb Concent. 33.1 g/dL (32.3-36.5); Mean Platelet Volume 11.1 fL (9.4-12.4); Monocytes % 5.8 % (5.3-12.2); Neutrophil % 72.8 % (34.0-67.9); Platelet Count 254 x10^3/uL (163-337); Red Blood Count 4.36 x10^6/uL (4.63-6.08); Red Cell Distribution Width 13.2 % (11.6-14.4); White Blood Count 17.1 x10^3/uL (4.23-9.07)
[2024-10-07 05:51] LABS: ALBUMIN 2.9 g/dL (3.5-5.0); ANION GAP 9.5 MEQ/L (5-15); BILIRUBIN,TOTAL 0.4 mg/dL (0.2-1.3); Calcium 8.1 mg/dL (8.4-10.2); Creatinine 1 0.68 mg/dL (0.66-1.25); EST GLOMERULAR FILTRATION RATE 109.1 ML/MIN; Potassium 3.7 mmol/L (3.5-5.1); Total Protein 5.5 g/dL (6.3-8.2)
[2024-10-07] MEDS ORDERED: ZITHROMAX IV*** 0 MG in Sodium Chloride 0.9% 250 ML 250 ML IV SCH (10:00)
--- NOTE | 2024-10-07 11:59 | PCM.NOTE ---
Date and Time: 10/07/24 1151 Subjective Assessment: Patient reports cough productive of yellow phlegm. Mild dyspnea reported. No chest pain. Patient reports he fell last night. No injuries. Appetite improved. No abdominal pain, nausea or vomiting. No problems with bowels or bladder. - Review of Systems Constitutional: No Symptoms, No Fever, No Chills Eyes: No Symptoms Ears, Nose, & Throat: No Symptoms Respiratory: Cough, Short Of Breath Cardiac: No Symptoms, No Chest Pain, No Edema Abdominal/Gastrointestinal: No Symptoms Genitourinary Symptoms: No Symptoms, Dysuria, Frequency Musculoskeletal: No Symptoms Skin: No Symptoms Neurological: No Symptoms Psychological: No Symptoms Endocrine: No Symptoms Immunological/Allergic: No Symptoms All Other Systems: Reviewed and Negative Objective Exam General Appearance: no apparent distress Neurologic Exam: alert, oriented x 3, cooperative Skin Exam: normal color, warm, dry Eye Exam: PERRL, EOMI, eyes nml inspection Ears, Nose, Throat Exam: normal ENT inspection Neck Exam: normal inspection, non-tender, supple Lymphatic Exam: No adenopathy Respiratory Exam: crackles/rales, No wheezing Cardiovascular Exam: regular rate/rhythm, murmur Gastrointestinal/Abdomen Exam: soft, normal bowel sounds, No tenderness Extremity Exam: normal inspection Back Exam: normal inspection Male Genitalia Exam: deferred Rectal Exam: deferred Objective Data Vital Signs: Vital Signs - 24 hr Temp Pulse Resp BP Pulse Ox 10/07/24 11:15 96.8 F 85 18 105/57 96 10/07/24 07:12 97.3 F 72 18 101/65 95 10/07/24 04:00 97.3 F 77 18 110/73 92 L 10/06/24 23:21 97.2 F 78 16 100/64 93 L 10/06/24 19:29 96.8 F 83 16 117/72 93 L 10/06/24 16:00 97.6 F 80 16 131/77 97 Pain Assessment - Last Documented Pain Intensity 0 Intake and Output: Intake & Output 10/04/24 10/05/24 10/06/24 10/07/24 11:59 11:59 11:59 11:59 Intake Total 1731 2501 Output Total 600 1980 Balance 1131 521 Weight 77.3 kg Lab Results: Lab Results-Last 24 Hours 12/23/24 12/23/24 12/24/24 Range/Units 16:33 21:28 05:20 WBC 17.1 H (4.23-9.07) x10^3/uL RBC 4.36 L (4.63-6.08) x10^6/uL Hgb 13.0 L (13.7-17.5) g/dL Hct 39.3 L (40.1-51.0) % MCV 90.1 (79.0-92.2) fL MCH 29.8 (25.7-32.2) pg MCHC 33.1 (32.3-36.5) g/dL RDW 13.2 (11.6-14.4) % Plt Count 254 (163-337) x10^3/uL MPV 11.1 (9.4-12.4) fL Gran % 72.8 H (34.0-67.9) % Immature Gran % (Auto) 1.8 H (0.001-0.429) % Nucleat RBC Rel Count 0.0 (0.00-0.2) % Eos # (Auto) 0.07 (0.04-0.54) x10^3/uL Immature Gran # (Auto) 0.31 H (0.001-0.031) x10^3u/L Absolute Lymphs (auto) 3.22 (1.32-3.57) x10^3/uL Absolute Monos (auto) 1.00 H (0.30-0.82) x10^3/uL Absolute Nucleated RBC 0.00 (0.00-0.012) x10^3u/L Lymphocytes % 18.8 L (21.8-53.1) % Monocytes % 5.8 (5.3-12.2) % Eosinophils % 0.4 L (0.8-7.0) % Basophils % 0.4 (0.2-1.2) % Absolute Granulocytes 12.46 H (1.78-5.38) x10^3/uL Basophils # 0.06 (0.01-0.08) x10^3/uL Sodium (135-145) mmol/L Potassium (3.5-5.1) mmol/L Chloride (98-107) mmol/L Carbon Dioxide (22-30) mmol/L Anion Gap (5-15) MEQ/L BUN (9-20) mg/dL Creatinine (0.66-1.25) mg/dL Estimated GFR ML/MIN Glucose (74-106) mg/dL POC Glucometer 263 H 239 H (74 to 106) mg/dL Calcium (8.4-10.2) mg/dL Total Bilirubin (0.2-1.3) mg/dL AST (17-59) U/L ALT (0-50) U/L Alkaline Phosphatase (38-126) U/L Serum Total Protein (6.3-8.2) g/dL Albumin (3.5-5.0) g/dL 10/07/24 10/07/24 10/07/24 Range/Units 05:20 07:10 11:14 WBC (4.23-9.07) x10^3/uL RBC (4.63-6.08) x10^6/uL Hgb (13.7-17.5) g/dL Hct (40.1-51.0) % MCV (79.0-92.2) fL MCH (25.7-32.2) pg MCHC (32.3-36.5) g/dL RDW (11.6-14.4) % Plt Count (163-337) x10^3/uL MPV (9.4-12.4) fL Gran % (34.0-67.9) % Immature Gran % (Auto) (0.001-0.429) % Nucleat RBC Rel Count (0.00-0.2) % Eos # (Auto) (0.04-0.54) x10^3/uL Immature Gran # (Auto) (0.001-0.031) x10^3u/L Absolute Lymphs (auto) (1.32-3.57) x10^3/uL Absolute Monos (auto) (0.30-0.82) x10^3/uL Absolute Nucleated RBC (0.00-0.012) x10^3u/L Lymphocytes % (21.8-53.1) % Monocytes % (5.3-12.2) % Eosinophils % (0.8-7.0) % Basophils % (0.2-1.2) % Absolute Granulocytes (1.78-5.38) x10^3/uL Basophils # (0.01-0.08) x10^3/uL Sodium 130 L (135-145) mmol/L Potassium 3.7 (3.5-5.1) mmol/L Chloride 99 (98-107) mmol/L Carbon Dioxide 26 (22-30) mmol/L Anion Gap 9.5 (5-15) MEQ/L BUN 25 H (9-20) mg/dL Creatinine 0.68 (0.66-1.25) mg/dL Estimated GFR 109.1 ML/MIN Glucose 187 H (74-106) mg/dL POC Glucometer 162 H 366 H (74 to 106) mg/dL Calcium 8.1 L (8.4-10.2) mg/dL Total Bilirubin 0.40 (0.2-1.3) mg/dL AST 49 (17-59) U/L ALT 73 H (0-50) U/L Alkaline Phosphatase 220 H (38-126) U/L Serum Total Protein 5.5 L (6.3-8.2) g/dL Albumin 2.9 L (3.5-5.0) g/dL Radiology Exams: Radiology Procedures Category Date Time Status CHEST 1 VIEW (PORTABLE) Routine Exams 10/06/24 07:43 Completed Assessment/Plan (1) Pneumonia Current Visit: Yes Status: Acute Assessment & Plan: Assessment/Plan (1) Hyperglycemia due to diabetes mellitus Current Visit: Yes Status: Acute Assessment & Plan: -Admitted with marked hyperglycemia but no DKA -A1c=12.53 -Continue treatment with insulin -Monitor BS. SS insulin -It is possible severe hyperglycemia was related to pneumonia -However A1c suggests poor control -BS improved at 162 -Diabetic education -CM to work on supplies -Educated patient on the importance of good glycemic control and checking blood glucose levels -Will set up with Dr. Leung (endocrinology) on discharge (2) Pneumonia Current Visit: Yes Status: Acute Assessment & Plan: -Bilateral infiltrates -WBC remains elevated at 17,100 -Oxygenating well -Ceftriaxone/azithromycin (3) Dehydration Current Visit: Yes Status: Acute Assessment & Plan: -Resolved (4) Essential (primary) hypertension Current Visit: Yes Status: Acute Assessment & Plan: -stable continue home meds (5) Hyponatremia Current Visit: Yes Status: Acute Assessment & Plan: -Sodium remains low at 130. -Recheck in am Code(s): J18.9 - PNEUMONIA, UNSPECIFIED ORGANISM Telemedicine Encounter - Telemedicine Encounter Telemedicine Encounter: "The entirety of this encounter was performed via Telemedicine" This visit was performed using real-time audio and video connection between my location and thepatients locationwith the assistance of a surrogateat the patients location. Written or verbal consent was obtained from the patient/guardian to perform this visit usingsynchronoustelemedicine technology. Any patient questions regarding the telemedicine interaction were answered.
--- NOTE | 2024-10-07 12:26 | XRAY ---
Indication: Pneumonia. Comparison: One day earlier. Portable chest grossly unchanged again underinflated with mild bibasilar infiltrates/atelectasis/effusions. Heart not enlarged. No new cardiopulmonary abnormalities.
[2024-10-07] MEDS: NICODERM CQ 14 MG TOP SCH (21:00)
[2024-10-08 07:41] LABS: Absolute Neutrophil Ct (ANC) 10.51 x10^3/uL (1.78-5.38); BASOPHIL % 0.5 % (0.2-1.2); Basophil (Absolute #) 0.07 x10^3/uL (0.01-0.08); Eosinophil % 0.3 % (0.8-7.0); Eosinophil (Absolute #) 0.05 x10^3/uL (0.04-0.54); Hematocrit 41.8 % (40.1-51.0); Hemoglobin 13.7 g/dL (13.7-17.5); IMMATURE GRAN # 0.27 x10^3u/L (0.001-0.031); IMMATURE GRAN % 1.8 % (0.001-0.429); Lymphocyte (Absolute #) 2.65 x10^3/uL (1.32-3.57); Lymphocytes % 18.1 % (21.8-53.1); Mean Cell Volume 90.5 fL (79.0-92.2); Mean Corpuscular Hemoglobin 29.7 pg (25.7-32.2); Mean Corpuscular Hgb Concent. 32.8 g/dL (32.3-36.5); Monocyte (Absolute #) 1.11 x10^3/uL (0.30-0.82); Monocytes % 7.6 % (5.3-12.2); Neutrophil % 71.7 % (34.0-67.9); Platelet Count 286 x10^3/uL (163-337); Red Blood Count 4.62 x10^6/uL (4.63-6.08); White Blood Count 14.7 x10^3/uL (4.23-9.07)
[2024-10-08 07:56] LABS: ALBUMIN 2.9 g/dL (3.5-5.0); ANION GAP 10.3 MEQ/L (5-15); BILIRUBIN,TOTAL 0.5 mg/dL (0.2-1.3); Calcium 8.3 mg/dL (8.4-10.2); Creatinine 1 0.62 mg/dL (0.66-1.25); EST GLOMERULAR FILTRATION RATE 112.2 ML/MIN; Potassium 4.1 mmol/L (3.5-5.1); Total Protein 5.7 g/dL (6.3-8.2)
--- NOTE | 2024-10-08 11:48 | PCM.NOTE ---
Date and Time: 10/08/24 1141 Subjective Assessment: Patient reports feeling worse. Some increased dyspnea and he reports generalized achiness.No fever or chills. He denies chest pain. Minimal cough. He had some nausea last night but no abdominal pain and no vomiting. No problems with bowels or bladder. - Review of Systems Constitutional: Fatigue, No Fever, No Chills Eyes: No Symptoms Ears, Nose, & Throat: No Symptoms Respiratory: Short Of Breath Cardiac: No Symptoms, No Chest Pain, No Edema, No Palpitations Abdominal/Gastrointestinal: Nausea, No Abdominal Pain, No Vomiting, No Diarrhea Genitourinary Symptoms: No Symptoms, No Dysuria, No Frequency, No Hematuria Musculoskeletal: No Symptoms Skin: No Symptoms Neurological: No Symptoms Psychological: No Symptoms Endocrine: No Symptoms Hematologic/Lymphatic: No Symptoms Immunological/Allergic: No Symptoms All Other Systems: Reviewed and Negative Objective Exam General Appearance: no apparent distress Neurologic Exam: alert, oriented x 3, cooperative Skin Exam: normal color, warm, dry Eye Exam: PERRL, EOMI, eyes nml inspection Ears, Nose, Throat Exam: normal ENT inspection Neck Exam: normal inspection, non-tender, supple Lymphatic Exam: No adenopathy Respiratory Exam: crackles/rales Cardiovascular Exam: regular rate/rhythm, normal heart sounds Gastrointestinal/Abdomen Exam: soft, normal bowel sounds, No tenderness Extremity Exam: normal inspection Back Exam: normal inspection Male Genitalia Exam: deferred Rectal Exam: deferred Objective Data Vital Signs: Vital Signs - 24 hr Temp Pulse Resp BP Pulse Ox 10/08/24 11:00 98.0 F 96 H 16 149/62 93 L 10/08/24 07:00 97.6 F 86 16 110/68 95 10/08/24 03:00 97.3 F 83 18 97/56 94 L 10/07/24 23:31 98.7 F 84 20 100/51 94 L 10/07/24 20:00 97.9 F 88 18 113/70 98 10/07/24 16:00 96.6 F 79 16 107/73 97 Pain Assessment - Last Documented Pain Intensity 0 Intake and Output: Intake & Output 10/05/24 10/06/24 10/07/24 10/08/24 11:59 11:59 11:59 11:59 Intake Total 1731 2501 1570 Output Total 600 1980 950 Balance 1131 521 620 Weight 77.3 kg Lab Results: Lab Results-Last 24 Hours 10/07/24 10/07/24 10/08/24 Range/Units 16:24 21:29 01:01 WBC (4.23-9.07) x10^3/uL RBC (4.63-6.08) x10^6/uL Hgb (13.7-17.5) g/dL Hct (40.1-51.0) % MCV (79.0-92.2) fL MCH (25.7-32.2) pg MCHC (32.3-36.5) g/dL RDW (11.6-14.4) % Plt Count (163-337) x10^3/uL MPV (9.4-12.4) fL Gran % (34.0-67.9) % Immature Gran % (Auto) (0.001-0.429) % Nucleat RBC Rel Count (0.00-0.2) % Eos # (Auto) (0.04-0.54) x10^3/uL Immature Gran # (Auto) (0.001-0.031) x10^3u/L Absolute Lymphs (auto) (1.32-3.57) x10^3/uL Absolute Monos (auto) (0.30-0.82) x10^3/uL Absolute Nucleated RBC (0.00-0.012) x10^3u/L Lymphocytes % (21.8-53.1) % Monocytes % (5.3-12.2) % Eosinophils % (0.8-7.0) % Basophils % (0.2-1.2) % Absolute Granulocytes (1.78-5.38) x10^3/uL Basophils # (0.01-0.08) x10^3/uL Sodium (135-145) mmol/L Potassium (3.5-5.1) mmol/L Chloride (98-107) mmol/L Carbon Dioxide (22-30) mmol/L Anion Gap (5-15) MEQ/L BUN (9-20) mg/dL Creatinine (0.66-1.25) mg/dL Estimated GFR ML/MIN Glucose (74-106) mg/dL POC Glucometer 284 H 317 H 158 H (74 to 106) mg/dL Calcium (8.4-10.2) mg/dL Total Bilirubin (0.2-1.3) mg/dL AST (17-59) U/L ALT (0-50) U/L Alkaline Phosphatase (38-126) U/L Serum Total Protein (6.3-8.2) g/dL Albumin (3.5-5.0) g/dL 10/08/24 10/08/24 10/08/24 Range/Units 06:45 06:45 07:31 WBC 14.7 H (4.23-9.07) x10^3/uL RBC 4.62 L (4.63-6.08) x10^6/uL Hgb 13.7 (13.7-17.5) g/dL Hct 41.8 (40.1-51.0) % MCV 90.5 (79.0-92.2) fL MCH 29.7 (25.7-32.2) pg MCHC 32.8 (32.3-36.5) g/dL RDW 13.0 (11.6-14.4) % Plt Count 286 (163-337) x10^3/uL MPV 11.0 (9.4-12.4) fL Gran % 71.7 H (34.0-67.9) % Immature Gran % (Auto) 1.8 H (0.001-0.429) % Nucleat RBC Rel Count 0.0 (0.00-0.2) % Eos # (Auto) 0.05 (0.04-0.54) x10^3/uL Immature Gran # (Auto) 0.27 H (0.001-0.031) x10^3u/L Absolute Lymphs (auto) 2.65 (1.32-3.57) x10^3/uL Absolute Monos (auto) 1.11 H (0.30-0.82) x10^3/uL Absolute Nucleated RBC 0.00 (0.00-0.012) x10^3u/L Lymphocytes % 18.1 L (21.8-53.1) % Monocytes % 7.6 (5.3-12.2) % Eosinophils % 0.3 L (0.8-7.0) % Basophils % 0.5 (0.2-1.2) % Absolute Granulocytes 10.51 H (1.78-5.38) x10^3/uL Basophils # 0.07 (0.01-0.08) x10^3/uL Sodium 134 L (135-145) mmol/L Potassium 4.1 (3.5-5.1) mmol/L Chloride 100 (98-107) mmol/L Carbon Dioxide 28 (22-30) mmol/L Anion Gap 10.3 (5-15) MEQ/L BUN 18 (9-20) mg/dL Creatinine 0.62 L (0.66-1.25) mg/dL Estimated GFR 112.2 ML/MIN Glucose 224 H (74-106) mg/dL POC Glucometer 259 H (74 to 106) mg/dL Calcium 8.3 L (8.4-10.2) mg/dL Total Bilirubin 0.50 (0.2-1.3) mg/dL AST 45 (17-59) U/L ALT 74 H (0-50) U/L Alkaline Phosphatase 253 H (38-126) U/L Serum Total Protein 5.7 L (6.3-8.2) g/dL Albumin 2.9 L (3.5-5.0) g/dL 12/25/24 Range/Units 11:27 WBC (4.23-9.07) x10^3/uL RBC (4.63-6.08) x10^6/uL Hgb (13.7-17.5) g/dL Hct (40.1-51.0) % MCV (79.0-92.2) fL MCH (25.7-32.2) pg MCHC (32.3-36.5) g/dL RDW (11.6-14.4) % Plt Count (163-337) x10^3/uL MPV (9.4-12.4) fL Gran % (34.0-67.9) % Immature Gran % (Auto) (0.001-0.429) % Nucleat RBC Rel Count (0.00-0.2) % Eos # (Auto) (0.04-0.54) x10^3/uL Immature Gran # (Auto) (0.001-0.031) x10^3u/L Absolute Lymphs (auto) (1.32-3.57) x10^3/uL Absolute Monos (auto) (0.30-0.82) x10^3/uL Absolute Nucleated RBC (0.00-0.012) x10^3u/L Lymphocytes % (21.8-53.1) % Monocytes % (5.3-12.2) % Eosinophils % (0.8-7.0) % Basophils % (0.2-1.2) % Absolute Granulocytes (1.78-5.38) x10^3/uL Basophils # (0.01-0.08) x10^3/uL Sodium (135-145) mmol/L Potassium (3.5-5.1) mmol/L Chloride (98-107) mmol/L Carbon Dioxide (22-30) mmol/L Anion Gap (5-15) MEQ/L BUN (9-20) mg/dL Creatinine (0.66-1.25) mg/dL Estimated GFR ML/MIN Glucose (74-106) mg/dL POC Glucometer 300 H (74 to 106) mg/dL Calcium (8.4-10.2) mg/dL Total Bilirubin (0.2-1.3) mg/dL AST (17-59) U/L ALT (0-50) U/L Alkaline Phosphatase (38-126) U/L Serum Total Protein (6.3-8.2) g/dL Albumin (3.5-5.0) g/dL Radiology Exams: Radiology Procedures Category Date Time Status CHEST 1 VIEW (PORTABLE) Routine Exams 10/07/24 12:00 Completed Assessment/Plan (1) Pneumonia Current Visit: Yes Status: Acute Assessment & Plan: Assessment/Plan (1) Hyperglycemia due to diabetes mellitus Current Visit: Yes Status: Acute Assessment & Plan: -Admitted with marked hyperglycemia but no evidence of DKA -A1c=12.53 indicating diabetes is poorly controlled -Continue insulin. BS improved -Monitor BS. SS insulin -It is possible severe hyperglycemia was related to pneumonia -Diabetic education -CM to work on supplies -Educated patient on the importance of good glycemic control and checking blood glucose levels -Will set up with Dr. Leung (endocrinology) on discharge (2) Pneumonia Current Visit: Yes Status: Acute Assessment & Plan: -Cxray showed bilateral infiltrates with possible effusions -WBC improved at 14,700 -Oxygenating well -Continue Ceftriaxone and Azithromycin (3) Dehydration Current Visit: Yes Status: Acute Assessment & Plan: -Resolved (4) Essential (primary) hypertension Current Visit: Yes Status: Acute Assessment & Plan: -stable -Continue home meds (5) Hyponatremia Current Visit: Yes Status: Acute Assessment & Plan: -Resolved Code(s): J18.9 - PNEUMONIA, UNSPECIFIED ORGANISM Telemedicine Encounter - Telemedicine Encounter Telemedicine Encounter: "The entirety of this encounter was performed via Telemedicine" This visit was performed using real-time audio and video connection between my location and thepatients locationwith the assistance of a surrogateat the patients location. Written or verbal consent was obtained from the patient/guardian to perform this visit [facility] technology. Any patient questions regarding the telemedicine interaction were answered.
--- NOTE | 2024-10-09 04:53 | PCM.NOTE ---
Date and Time: 10/09/24 0451 Subjective Assessment: HPI: Mr. GODWIN is a 54 year old male with a past medical history significant for hypertension, diabetes, and hyperlipidemia who presents to the hospital with complaints of weakness and elevated blood sugars. Initial lab findings were remarkable for blood glucose level of 938, leukocytosis with WBC at 23.4, hyponatremia in the setting of hypoglycemia, elevated procal at 0.530, and transaminitis. Urinalysis with glycosuria. CXR showing new infilatrate in bilateral lungs. Patient states he is compliant with home diabetes medications but does not check his blood sugar. He states he needs a new machine and supplies. Last A1c in November 2023 was 11.10, today A1c is at 12.53. Discussed starting insulin and seeing an dining server with patient today. He currently is Medicaid pending and will need help with medications and supplies- CM is working on this. CXR findings showing pneumonia. He is a current everyday smoker -advised cessation. Objective Data Vital Signs: Vital Signs - 24 hr Temp Pulse Resp BP Pulse Ox 10/09/24 03:48 98.0 F 87 20 99/55 94 L 10/08/24 23:21 98.0 F 86 18 117/59 95 10/08/24 20:00 97.3 F 94 H 18 106/68 99 10/08/24 19:40 96 10/08/24 16:00 97.9 F 83 16 103/61 96 10/08/24 13:00 97 10/08/24 11:00 98.0 F 96 H 16 149/62 93 L 10/08/24 07:00 97.6 F 86 16 110/68 95 Pain Assessment - Last Documented Pain Intensity 0 Intake and Output: Intake & Output 10/06/24 10/07/24 10/08/24 10/09/24 11:59 11:59 11:59 11:59 Intake Total 1731 2501 1570 580 Output Total 600 1980 950 800 Balance 1131 521 620 -220 Weight 77.3 kg Lab Results: Lab Results-Last 24 Hours 10/08/24 10/08/24 10/08/24 Range/Units 06:45 06:45 07:31 WBC 14.7 H (4.23-9.07) x10^3/uL RBC 4.62 L (4.63-6.08) x10^6/uL Hgb 13.7 (13.7-17.5) g/dL Hct 41.8 (40.1-51.0) % MCV 90.5 (79.0-92.2) fL MCH 29.7 (25.7-32.2) pg MCHC 32.8 (32.3-36.5) g/dL RDW 13.0 (11.6-14.4) % Plt Count 286 (163-337) x10^3/uL MPV 11.0 (9.4-12.4) fL Gran % 71.7 H (34.0-67.9) % Immature Gran % (Auto) 1.8 H (0.001-0.429) % Nucleat RBC Rel Count 0.0 (0.00-0.2) % Eos # (Auto) 0.05 (0.04-0.54) x10^3/uL Immature Gran # (Auto) 0.27 H (0.001-0.031) x10^3u/L Absolute Lymphs (auto) 2.65 (1.32-3.57) x10^3/uL Absolute Monos (auto) 1.11 H (0.30-0.82) x10^3/uL Absolute Nucleated RBC 0.00 (0.00-0.012) x10^3u/L Lymphocytes % 18.1 L (21.8-53.1) % Monocytes % 7.6 (5.3-12.2) % Eosinophils % 0.3 L (0.8-7.0) % Basophils % 0.5 (0.2-1.2) % Absolute Granulocytes 10.51 H (1.78-5.38) x10^3/uL Basophils # 0.07 (0.01-0.08) x10^3/uL Sodium 134 L (135-145) mmol/L Potassium 4.1 (3.5-5.1) mmol/L Chloride 100 (98-107) mmol/L Carbon Dioxide 28 (22-30) mmol/L Anion Gap 10.3 (5-15) MEQ/L BUN 18 (9-20) mg/dL Creatinine 0.62 L (0.66-1.25) mg/dL Estimated GFR 112.2 ML/MIN Glucose 224 H (74-106) mg/dL POC Glucometer 259 H (74 to 106) mg/dL Calcium 8.3 L (8.4-10.2) mg/dL Total Bilirubin 0.50 (0.2-1.3) mg/dL AST 45 (17-59) U/L ALT 74 H (0-50) U/L Alkaline Phosphatase 253 H (38-126) U/L Serum Total Protein 5.7 L (6.3-8.2) g/dL Albumin 2.9 L (3.5-5.0) g/dL 10/08/24 10/08/24 10/08/24 Range/Units 11:27 16:14 22:02 WBC (4.23-9.07) x10^3/uL RBC (4.63-6.08) x10^6/uL Hgb (13.7-17.5) g/dL Hct (40.1-51.0) % MCV (79.0-92.2) fL MCH (25.7-32.2) pg MCHC (32.3-36.5) g/dL RDW (11.6-14.4) % Plt Count (163-337) x10^3/uL MPV (9.4-12.4) fL Gran % (34.0-67.9) % Immature Gran % (Auto) (0.001-0.429) % Nucleat RBC Rel Count (0.00-0.2) % Eos # (Auto) (0.04-0.54) x10^3/uL Immature Gran # (Auto) (0.001-0.031) x10^3u/L Absolute Lymphs (auto) (1.32-3.57) x10^3/uL Absolute Monos (auto) (0.30-0.82) x10^3/uL Absolute Nucleated RBC (0.00-0.012) x10^3u/L Lymphocytes % (21.8-53.1) % Monocytes % (5.3-12.2) % Eosinophils % (0.8-7.0) % Basophils % (0.2-1.2) % Absolute Granulocytes (1.78-5.38) x10^3/uL Basophils # (0.01-0.08) x10^3/uL Sodium (135-145) mmol/L Potassium (3.5-5.1) mmol/L Chloride (98-107) mmol/L Carbon Dioxide (22-30) mmol/L Anion Gap (5-15) MEQ/L BUN (9-20) mg/dL Creatinine (0.66-1.25) mg/dL Estimated GFR ML/MIN Glucose (74-106) mg/dL POC Glucometer 300 H 318 H 303 H (74 to 106) mg/dL Calcium (8.4-10.2) mg/dL Total Bilirubin (0.2-1.3) mg/dL AST (17-59) U/L ALT (0-50) U/L Alkaline Phosphatase (38-126) U/L Serum Total Protein (6.3-8.2) g/dL Albumin (3.5-5.0) g/dL Radiology Exams: Radiology Procedures Category Date Time Status CHEST 1 VIEW (PORTABLE) Routine Exams 10/07/24 12:00 Completed CHEST 1 VIEW (PORTABLE) Routine Exams 10/09/24 06:00 Ordered Assessment/Plan (1) Hyperglycemia due to diabetes mellitus Current Visit: Yes Status: Acute Assessment & Plan: -accuchecks ACHS -ADA diet -A1c 12.53 - SSI/glargine glargine 20u QAM -Blood glucose levels reviewed and improving now at 177 this morning -Diabetic education -CM to work on supplies - glucometer, lancets, strips - patient may have to get [employer] until insurance kicks in- will check on affordability -Educated patient on the importance of good glycemic control and checking blood glucose levels -Will set up with Dr. Leung (endocrinology) on discharge Code(s): E11.65 - TYPE 2 DIABETES MELLITUS WITH HYPERGLYCEMIA (2) Pneumonia Current Visit: Yes Status: Acute Assessment & Plan: -CXR demonstrates new mild bibasilar infiltrates/atelectasis/effusions -WBC reviewed at 18.8<23.4 -trend -Supplemental oxygen for goal spo2 > 92% - baseline RA -Currently on RA -Nebs prn -Ceftriaxone/azithromycin Code(s): J18.9 - PNEUMONIA, UNSPECIFIED ORGANISM (3) Dehydration Current Visit: Yes Status: Acute Assessment & Plan: -Resolved Code(s): E86.0 - DEHYDRATION (4) Essential (primary) hypertension Current Visit: Yes Status: Acute Assessment & Plan: -stable continue home meds Code(s): I10 - ESSENTIAL (PRIMARY) HYPERTENSION (5) Hyponatremia Current Visit: Yes Status: Acute Assessment & Plan: -secondary to hyperglycemia -CMP reviewed, sodium now at 131 Code(s): E11.65 - TYPE 2 DIABETES MELLITUS WITH HYPERGLYCEMIA (2) Pneumonia Current Visit: Yes Status: Acute Code(s): J18.9 - PNEUMONIA, UNSPECIFIED ORGANISM (3) Dehydration Current Visit: Yes Status: Acute Code(s): E86.0 - DEHYDRATION (4) Essential (primary) hypertension Current Visit: Yes Status: Acute Code(s): I10 - ESSENTIAL (PRIMARY) HYPERTENSION (5) Hyponatremia Current Visit: Yes Status: Acute Code(s): E87.1 - HYPO-OSMOLALITY AND HYPONATREMIA
[2024-10-09 05:23] LABS: BASOPHIL % 0.4 % (0.2-1.2); Basophil (Absolute #) 0.06 x10^3/uL (0.01-0.08); Eosinophil % 0.6 % (0.8-7.0); Eosinophil (Absolute #) 0.09 x10^3/uL (0.04-0.54); Hematocrit 38.3 % (40.1-51.0); Hemoglobin 12.8 g/dL (13.7-17.5); IMMATURE GRAN % 1.4 % (0.001-0.429); Lymphocyte (Absolute #) 2.44 x10^3/uL (1.32-3.57); Lymphocytes % 16.8 % (21.8-53.1); Mean Cell Volume 90.8 fL (79.0-92.2); Mean Corpuscular Hemoglobin 30.3 pg (25.7-32.2); Mean Corpuscular Hgb Concent. 33.4 g/dL (32.3-36.5); Mean Platelet Volume 11.1 fL (9.4-12.4); Monocyte (Absolute #) 1.23 x10^3/uL (0.30-0.82); Monocytes % 8.5 % (5.3-12.2); Neutrophil % 72.3 % (34.0-67.9); Platelet Count 311 x10^3/uL (163-337); Red Blood Count 4.22 x10^6/uL (4.63-6.08); Red Cell Distribution Width 13.2 % (11.6-14.4); White Blood Count 14.5 x10^3/uL (4.23-9.07)
[2024-10-09 05:43] LABS: ALBUMIN 2.8 g/dL (3.5-5.0); ANION GAP 10.2 MEQ/L (5-15); BILIRUBIN,TOTAL 0.5 mg/dL (0.2-1.3); Calcium 8.3 mg/dL (8.4-10.2); Creatinine 1 0.53 mg/dL (0.66-1.25); EST GLOMERULAR FILTRATION RATE 117.6 ML/MIN; Potassium 3.9 mmol/L (3.5-5.1); Total Protein 5.5 g/dL (6.3-8.2)
[2024-10-09 07:00] VITALS: RESP 18
[2024-10-09 09:06] VITALS: O2SAT 95
--- NOTE | 2024-10-09 09:13 | XRAY ---
Indication: Pneumonia. Comparison: October 07, 2024 Portable apical lordotic chest remains underinflated with grossly stable bibasilar infiltrates/atelectasis/effusions. Increasing diffuse bilateral interstitial opacities. Heart not enlarged.
--- NOTE | 2024-10-09 11:26 | PCM.DS ---
Discharge Summary Date of Admission: 10/05/24 19:44 Date of Discharge: 10/09/24 Admitting Physician: SHAYAN VELASQUEZ MD Primary Care Provider: GONZALO RAMIREZ Allergies Allergies No Known Drug Allergies Allergy (Verified 12/11/23 06:40) Hospital Summary - Hospital Course Hospital Course: HPI: Mr. GODWIN is a 54 year old male with a past medical history significant for hypertension, diabetes, and hyperlipidemia who presents to the hospital with c omplaints of weakness and elevated blood sugars. Initial lab findings were remarkable for blood glucose level of 938, leukocytosis with WBC at 23.4, hyponatremia in the setting of hypoglycemia, elevated procal at 0.530, and transaminitis. Urinalysis with glycosuria. CXR showing new infilatrate in bi lateral lungs. Patient states he is compliant with home diabetes medications but does not check his blood sugar. He states he needs a new machine and supplies. Last A1c in November 2023 was 11.10, today A1c is at 12.53. Discussed starting insulin and seeing an emergency detail driver with patient today. He currently is Medicaid pending and will need help with medications and supplies- CM is working on this. CXR findings showing pneumonia. He is a current everyday smoker - advised cessation. IP treatment with ceftriaxone/azith. Dyspnea and cough have improved. Blood glucose levels stable. Initiated Lantus/ SSI coverage. Diabetic education provided. Endocrinology appt set up. Will discharge home with cefuroxime and doxycycline. Patient to follow up with PCP in one week for repeat CXR. Patient advised to keep records of blood glucose level and to check blood glucose levels TIDWM and at bedtime. He is to take log to endocrinology appt. Discharge Note New Diagnosis: Pneumonia New Medications: Lantus/lispro SSI - cefuroxime/doxycycline Follow Up: PCP/endocrinology Latest Assessment & Plan 1) Hyperglycemia due to diabetes mellitus Current Visit: Yes Status: Acute Assessment & Plan: -accuchecks ACHS -ADA diet -A1c 12.53 - SSI/glargine glargine 20u QAM -Blood glucose levels reviewed and improving now at 152 this morning -Diabetic education -CM to work on supplies - glucometer, lancets, strips - patient may have to get [employer] until insurance kicks in- will check on affordability -Educated patient on the importance of good glycemic control and checking blood glucose levels -Will set up with Dr. Boyle (endocrinology) on discharge Code(s): E11.65 - TYPE 2 DIABETES MELLITUS WITH HYPERGLYCEMIA (2) Pneumonia Current Visit: Yes Status: Acute Assessment & Plan: -CXR demonstrates new mild bibasilar infiltrates/atelectasis/effusions -WBC reviewed at 18.8<23.4 -trend -Supplemental oxygen for goal spo2 > 92% - baseline RA -Currently on RA -Nebs prn -Ceftriaxone/azithromycin Code(s): J18.9 - PNEUMONIA, UNSPECIFIED ORGANISM (3) Dehydration Current Visit: Yes Status: Acute Assessment & Plan: -Resolved Code(s): E86.0 - DEHYDRATION (4) Essential (primary) hypertension Current Visit: Yes Status: Acute Assessment & Plan: -stable continue home meds Code(s): I10 - ESSENTIAL (PRIMARY) HYPERTENSION (5) Hyponatremia Current Visit: Yes Status: Acute Assessment & Plan: -secondary to hyperglycemia -CMP reviewed, sodium now at 131 I spent 35 minutes [id number] with the patient on the day of discharge performing discharge exam, discussing hospital stay and discharge instructions with patient and caregivers, preparation of discharge records, prescriptions & referral forms and addressing any questions/concerns the patient had as documented above. - Vitals & Intake/Output Vital Signs: Vital Signs Temperature 97.5 F 10/09/24 06:59 Pulse Rate 82 10/09/24 06:59 Respiratory Rate 18 10/09/24 06:59 Blood Pressure 104/71 10/09/24 06:59 O2 Sat by Pulse Oximetry 95 10/09/24 09:06 Intake & Output: Intake & Output 10/06/24 10/07/24 10/08/24 10/09/24 11:59 11:59 11:59 11:59 Intake Total 1731 2501 1570 700 Output Total 600 1980 950 800 Balance 1131 521 620 -100 Weight 77.3 kg - Lab Result Diagrams: 10/09/24 05:18 10/09/24 05:18 Lab Results-Last 24 Hrs: Lab Results-Last 24 Hours 10/08/24 10/08/24 10/08/24 Range/Units 11:27 16:14 22:02 WBC (4.23-9.07) x10^3/uL RBC (4.63-6.08) x10^6/uL Hgb (13.7-17.5) g/dL Hct (40.1-51.0) % MCV (79.0-92.2) fL MCH (25.7-32.2) pg MCHC (32.3-36.5) g/dL RDW (11.6-14.4) % Plt Count (163-337) x10^3/uL MPV (9.4-12.4) fL Gran % (34.0-67.9) % Immature Gran % (Auto) (0.001-0.429) % Nucleat RBC Rel Count (0.00-0.2) % Eos # (Auto) (0.04-0.54) x10^3/uL Immature Gran # (Auto) (0.001-0.031) x10^3u/L Absolute Lymphs (auto) (1.32-3.57) x10^3/uL Absolute Monos (auto) (0.30-0.82) x10^3/uL Absolute Nucleated RBC (0.00-0.012) x10^3u/L Lymphocytes % (21.8-53.1) % Monocytes % (5.3-12.2) % Eosinophils % (0.8-7.0) % Basophils % (0.2-1.2) % Absolute Granulocytes (1.78-5.38) x10^3/uL Basophils # (0.01-0.08) x10^3/uL Sodium (135-145) mmol/L Potassium (3.5-5.1) mmol/L Chloride (98-107) mmol/L Carbon Dioxide (22-30) mmol/L Anion Gap (5-15) MEQ/L BUN (9-20) mg/dL Creatinine (0.66-1.25) mg/dL Estimated GFR ML/MIN Glucose (74-106) mg/dL POC Glucometer 300 H 318 H 303 H (74 to 106) mg/dL Calcium (8.4-10.2) mg/dL Total Bilirubin (0.2-1.3) mg/dL AST (17-59) U/L ALT (0-50) U/L Alkaline Phosphatase (38-126) U/L Serum Total Protein (6.3-8.2) g/dL Albumin (3.5-5.0) g/dL 10/09/24 10/09/24 10/09/24 Range/Units 05:18 05:18 07:07 WBC 14.5 H (4.23-9.07) x10^3/uL RBC 4.22 L (4.63-6.08) x10^6/uL Hgb 12.8 L (13.7-17.5) g/dL Hct 38.3 L (40.1-51.0) % MCV 90.8 (79.0-92.2) fL MCH 30.3 (25.7-32.2) pg MCHC 33.4 (32.3-36.5) g/dL RDW 13.2 (11.6-14.4) % Plt Count 311 (163-337) x10^3/uL MPV 11.1 (9.4-12.4) fL Gran % 72.3 H (34.0-67.9) % Immature Gran % (Auto) 1.4 H (0.001-0.429) % Nucleat RBC Rel Count 0.0 (0.00-0.2) % Eos # (Auto) 0.09 (0.04-0.54) x10^3/uL Immature Gran # (Auto) 0.20 H (0.001-0.031) x10^3u/L Absolute Lymphs (auto) 2.44 (1.32-3.57) x10^3/uL Absolute Monos (auto) 1.23 H (0.30-0.82) x10^3/uL Absolute Nucleated RBC 0.00 (0.00-0.012) x10^3u/L Lymphocytes % 16.8 L (21.8-53.1) % Monocytes % 8.5 (5.3-12.2) % Eosinophils % 0.6 L (0.8-7.0) % Basophils % 0.4 (0.2-1.2) % Absolute Granulocytes 10.50 H (1.78-5.38) x10^3/uL Basophils # 0.06 (0.01-0.08) x10^3/uL Sodium 135 (135-145) mmol/L Potassium 3.9 (3.5-5.1) mmol/L Chloride 105 (98-107) mmol/L Carbon Dioxide 23 (22-30) mmol/L Anion Gap 10.2 (5-15) MEQ/L BUN 14 (9-20) mg/dL Creatinine 0.53 L (0.66-1.25) mg/dL Estimated GFR 117.6 ML/MIN Glucose 152 H (74-106) mg/dL POC Glucometer 172 H (74 to 106) mg/dL Calcium 8.3 L (8.4-10.2) mg/dL Total Bilirubin 0.50 (0.2-1.3) mg/dL AST 31 (17-59) U/L ALT 56 H (0-50) U/L Alkaline Phosphatase 213 H (38-126) U/L Serum Total Protein 5.5 L (6.3-8.2) g/dL Albumin 2.8 L (3.5-5.0) g/dL // Range/Units 11:17 WBC (4.23-9.07) x10^3/uL RBC (4.63-6.08) x10^6/uL Hgb (13.7-17.5) g/dL Hct (40.1-51.0) % MCV (79.0-92.2) fL MCH (25.7-32.2) pg MCHC (32.3-36.5) g/dL RDW (11.6-14.4) % Plt Count (163-337) x10^3/uL MPV (9.4-12.4) fL Gran % (34.0-67.9) % Immature Gran % (Auto) (0.001-0.429) % Nucleat RBC Rel Count (0.00-0.2) % Eos # (Auto) (0.04-0.54) x10^3/uL Immature Gran # (Auto) (0.001-0.031) x10^3u/L Absolute Lymphs (auto) (1.32-3.57) x10^3/uL Absolute Monos (auto) (0.30-0.82) x10^3/uL Absolute Nucleated RBC (0.00-0.012) x10^3u/L Lymphocytes % (21.8-53.1) % Monocytes % (5.3-12.2) % Eosinophils % (0.8-7.0) % Basophils % (0.2-1.2) % Absolute Granulocytes (1.78-5.38) x10^3/uL Basophils # (0.01-0.08) x10^3/uL Sodium (135-145) mmol/L Potassium (3.5-5.1) mmol/L Chloride (98-107) mmol/L Carbon Dioxide (22-30) mmol/L Anion Gap (5-15) MEQ/L BUN (9-20) mg/dL Creatinine (0.66-1.25) mg/dL Estimated GFR ML/MIN Glucose (74-106) mg/dL POC Glucometer 344 H (74 to 106) mg/dL Calcium (8.4-10.2) mg/dL Total Bilirubin (0.2-1.3) mg/dL AST (17-59) U/L ALT (0-50) U/L Alkaline Phosphatase (38-126) U/L Serum Total Protein (6.3-8.2) g/dL Albumin (3.5-5.0) g/dL Micro Results-Entire Visit: Accuchecks Date 10/09/24 Date 10/08/24 Date 10/08/24 Date 10/08/24 Time 22:03 Time 16:17 Time 11:31 - Radiology Exams Ordered Rad Exams-Entire Visit: Radiology Procedures Category Date Time Status CHEST 1 VIEW (PORTABLE) Routine Exams 10/07/24 12:00 Completed CHEST 1 VIEW (PORTABLE) Routine Exams 10/09/24 06:00 Completed - Procedures and Test Procedures and Tests throughout Hospitalization: Therapy Orders & Screens 10/05/24 21:15 Smoking Cessation Education ONCE Comment: Diagnosis: hyperglycemial Smoking Status: Current every day smoker How long have you smoked: 38 years Have you smoked in the past 12 months: Yes Approximately how many cigarettes per day: 5-6 Do you dip or chew tobacco: No 10/08/24 11:56 Oxygen Nasal Cannula 2 lpm Comment: Diagnosis: hyperglycemia Discharge Exam General Appearance: no apparent distress Neurologic Exam: alert, oriented x 3, cooperative Eye Exam: PERRL Ears, Nose, Throat Exam: normal ENT inspection Neck Exam: normal inspection Respiratory Exam: crackles/rales Cardiovascular Exam: regular rate/rhythm, normal heart sounds Gastrointestinal/Abdomen Exam: soft, normal bowel sounds Male Genitalia Exam: deferred Rectal Exam: deferred Back Exam: normal inspection Extremity Exam: normal inspection Skin Exam: normal color Final Diagnosis/Problem List - Final Discharge Diagnosis/Problem (1) Hyperglycemia due to diabetes mellitus Current Visit: Yes Status: Resolved Code(s): E11.65 - TYPE 2 DIABETES M ELLITUS WITH HYPERGLYCEMIA (2) Pneumonia Current Visit: Yes Status: Acute Code(s): J18.9 - PNEUMONIA, UNSPECIFIED ORGANISM (3) Dehydration Current Visit: Yes Status: Resolved Code(s): E86.0 - DEHYDRATION (4) Essential (primary) hypertension Current Visit: Yes Status: Chronic Code(s): I10 - ESSENTIAL (PRIMARY) H YPERTENSION (5) Hyponatremia Current Visit: Yes Status: Resolved Code(s): E87.1 - HYPO-OSMOLALITY AND HY PONATREMIA - Discharge Discharge Date: 10/09/24 Disposition: Home, Self-Care Condition: Good Prescriptions: New cefuroxime axetiL [Cefuroxime] 500 mg PO BID 7 Days #14 tablet Glucagon [Gvoke Hypopen] See Rx Instructions .ROUTE .COMPLEX 30 Days #1 kit Insulin Lispro [Humalog Kwikpen] See Rx Instructions .ROUTE .COMPLEX 30 Days #1350 units MDD 45 Insulin Glargine,Hum.rec.anlog [Insulin Glargine Solostar] 20 unit SQ QAM 30 Days #600 unit Pen Needle, Diabetic [Insulin Pen Needle] See Rx Instructions .ROUTE .COMPLEX 30 Days #100 units Doxycycline Hyclate 100 mg [Vibramycin 100 MG] 100 mg PO BID 7 Days #14 tab Continue Carvedilol 3.125 mg [Coreg 3.125 MG] 3.125 mg PO BID Discontinued Semaglutide [Ozempic] 1.5 mg SQ WEEKLY Glipizide 10 mg [Glucotrol 10 MG] 10 mg PO BID Glimepiride 4 mg [Amaryl 4 mg] 4 mg PO DAILY Instructions: Pneumonia in adults, High Blood Sugar, Adult ED Follow up with: GONZALO RAMIREZ NP [Primary Care Provider] - 10/20/24 9:00 am ALFA BOYLE [NON-STAFF PHY W/O PRIVILEGES] - 10/22/24 10:00 am Forms: Discharge Instructions
[2024-10-09 12:02] VITALS: BP 100/68; PULSE 88; TEMP 97.3
== END 2024-10-09 13:28 | disposition home or self-care (01) ==
LOC: ED 13:47 → MED SURG 19:44
PROVIDERS: ADMIT Internal Medicine Nephrology; ATTEND Internal Medicine Nephrology
DX: E11.65 Type 2 diabetes mellitus with hyperglycemia (principal); J18.9 Pneumonia, unspecified organism; E86.0 Dehydration; I10 Essential (primary) hypertension; E87.1 Hypo-osmolality and hyponatremia; F17.200 Nicotine dependence, unspecified, uncomplicated; E78.5 Hyperlipidemia, unspecified; D72.829 Elevated white blood cell count, unspecified; Z79.899 Other long term (current) drug therapy
CPT/HCPCS: 0241U; 36415; 71045; 80048; 80053; 81001; 82805; 82947; 83036; 84145; 85025; 94760; 96360; 96374; 96376; 99291; G0378; Q3014; 96375; 99285; J0456; J0696; J1650; J1815; J1817; A9270-GY